=== PATIENT | male | born 1955 ===

== ENCOUNTER → 2019-05-16 | Day surgery (SDC) | payer OTHER, SELFPAY | PROVIDERS: Family Provider Internal Medicine; Visit Provider Internal Medicine | DX: R18.8 Other ascites (principal) | CPT/HCPCS: 49083; 96365; P9047 ==

== ENCOUNTER 2019-09-06 11:25 | Outpatient (RCR) | payer OTHER, SELFPAY | END 2019-09-06 23:59 | disposition home or self-care (01) | LOC: GILAB 11:25 | PROVIDERS: Family Provider Internal Medicine; Visit Provider Internal Medicine | DX: R18.8 Other ascites (principal); K74.60 Unspecified cirrhosis of liver | CPT/HCPCS: 49083; 76705 ==

== ENCOUNTER → 2019-09-20 | Day surgery (SDC) | payer SELFPAY | PROVIDERS: Family Provider Internal Medicine; Visit Provider Internal Medicine | DX: R18.8 Other ascites (principal) | CPT/HCPCS: 76705; P9047 ==

== ENCOUNTER 2019-10-03 11:56 | Observation (INO) | payer OTHER, SELFPAY ==
[2019-10-03] VITALS (9 sets, daily range): BP systolic 105–137; BP diastolic 63–95; PULSE 70–88; RESP 16–24; TEMP 36.5–37.1; O2SAT 96–99; BMI 36.0
--- NOTE | 2019-10-03 12:05 | ED_ITS ---
Entered by Gertrude Fagan, acting as scribe for HPI - Altered Mental Status General: Chief Complaint: Altered Mental Status Stated Complaint: AMS Time Seen by Provider: 10/03/19 12:05 Source: family and EMS Mode of arrival: EMS Limitations: no limitations History of Present Illness: HPI narrative: 64 yo male presents with confusion and altered mental status. per Family in room pt was at the dialysis clinic when he started acting confused and less responsive. per family pt was unable to talk or answer questions. pt has had weakness. pt unable to give a history. family denies any other symptoms at this time. MD complaint: altered mental status, confusion, weakness and other Timing confirmed by: family member and other (dialysis clinic staff) Consistency of symptoms: Constant Associated symptoms: Reports no associated symptoms Review of Systems General: Reports: ROS unobtainable due to mental status PFSH ED PFSH: Statuses (acute, chronic, etc) shown below reflect problem list status as previously entered and may not be historically accurate Medical History Adjustment disorder with anxiety (Acute) Cardiomyopathy (Acute) CHF (congestive heart failure) (Acute) Diabetes (Acute) Stable Diabetic retinopathy (Acute) Esophageal varices (Acute) ESRD (end stage renal disease) on dialysis (Acute) Receives dialysis. GERD (gastroesophageal reflux disease) (Acute) Hyperlipidemia (Acute) Hypertension (Acute) Liver failure (Acute) Stable Myocardial infarction (Acute) Normocytic anemia (Acute) Thrombocytopenia (Acute) Surgical History H/O circumcision (Acute) H/O colonoscopy (Acute) 08/2019: Follow-up colonoscopy 5 years H/O esophagogastroduodenoscopy (Acute) 2018: Gastric erosions and esophageal varices H/O eye surgery (Acute) right eye H/O hernia repair (Acute) x 4 H/O oral surgery (Acute) History of cataract surgery (Acute) bilateral History of knee replacement (Acute) right Hx of tonsillectomy (Acute) Family History Mother Cancer intestinal Denies family history of Anesthesia complication Bleeding disorder Social History (Reviewed 10/05/19 @ 11:19 by YONI Merino Smoking and tobacco status: never smoked Alcohol intake: never Household members: family Current occupational status: disabled Physical Exam Const: EXAM LIMITATIONS: altered mental status GENERAL APPEARANCE: cooperative and comfortable ORIENTATION/CONSCIOUSNESS: Yes confused; not oriented to person, not oriented to place and not oriented to time HENMT: COMMON NORMALS: normocephalic, head/scalp atraumatic, hearing grossly normal bilaterally, external ears normal, EAC's normal, TM's normal bilaterally, nasal mucous membranes and turbinates normal, moist oral mucous membranes and oropharynx normal HEAD & SCALP: normocephalic and atraumatic NOSE: nasal mucous membranes and turbinates normal EXTERNAL EAR: Yes external ears normal EXTERNAL AUDITORY CANAL: EAC's normal TYMPANIC MEMBRANE: TM's normal bilaterally Eye: COMMON NORMALS: PERRL, EOMs intact bilaterally, conjunctivae normal and no scleral icterus CONJUNCTIVA: Yes conjunctivae normal PUPIL: Yes PERRL Neck/C-Spine: COMMON NORMALS: full ROM, no lymphadenopathy, supple and no JVD Lymph: LYMPHATIC: no lymphadenopathy noted and no lymphedema noted Resp: COMMON NORMALS: normal respiratory effort, no retractions, no use of accessory muscles and clear to auscultation bilaterally AUSCULTATION: clear to auscultation bilaterally Cardio: COMMON NORMALS: no JVD, regular rate, regular rhythm and no murmurs RATE: regular rate RHYTHM: regular rhythm GI: COMMON NORMALS: non-tender PALPATION: Yes hepatomegaly Extremity: COMMON NORMALS: normal to inspection, normal capillary refill, no clubbing, cyanosis or edema, no calf tenderness and no pedal edema Neuro: SENSORIUM/ORIENTATION: No oriented to person, No oriented to place and No oriented to time Skin: COMMON NORMALS: no rashes or lesions noted GENERAL SKIN EXAM: no rashes or lesions noted Course ED course: Patient unable to give any significant history fell members at the bedside states this is been getting progressively worse generally all occurs with dialysis. Previously had seen him in his ammonia level is up he was hepato-encephalopathic we increased his lactulose and actually resolved fairly nicely. His ammonia level today is down significantly for him. Organ to go ahead and admit him ultrasound for CT does not show significant amount of ascites. Will cover with antibiotics for possible SBP. I called Dr. Arciniega for admission he will have to call back. Dr. Arciniega called back came down to the department seen the patient discussed with him he will write orders. Vital Signs: Vital signs: Vital Signs Temperature 98.3 F 10/04/19 14:47 Pulse Rate 87 10/04/19 12:00 Respiratory Rate 14 10/04/19 14:47 Blood Pressure 119/62 10/04/19 12:00 Pulse Oximetry 98 10/04/19 14:47 MDM - Altered Mental Status Lab Data: Labs: Lab Results 10/03/19 10/03/19 10/03/19 Range/Units 12:24 12:44 12:44 WBC 4.7 (4.0-10.0) 10^3/ uL RBC 2.45 L (4.1-5.3) 10^6/u L Hgb 8.0 L (11.7-16.6) g/dL Hct 25.0 L (42.0-52.0) % MCV 102.0 H (80-94) fL MCH 32.7 (28.0-34.0) pg MCHC 32.0 (30.0-36.0) g/dL RDW 15.0 (12.1-15.1) % Plt Count 102 L (130-400) 10^3/c mm MPV 9.2 (7.4-10.4) fL Neut % (Auto) 61.7 % Lymph % (Auto) 18.1 % Taliaferro % (Auto) 18.1 % Eos % (Auto) 1.7 % Baso % (Auto) 0.2 % Neut # (Auto) 2.9 (1.8-7.7) 10^3/u L Lymph # (Auto) 0.9 (0.8-4.8) 10^3/u L Tal[place]ferro # (Auto) 0.9 (0.2-0.9) 10^3/u L Eos # (Auto) 0.1 (0.0-0.8) 10^3/u L Baso # (Auto) 0.0 (0.0-0.1) 10^3/u L Nucleated RBC % (a uto) 0 % Nucleated RBCs # 0.0 /100WBC Specimen Type Arterial Sample Site Radial, right ABG pH 7.55 H (7.35-7.45) ABG pCO2 40.3 (35-45) mmHg ABG pO2 71.9 L (80.0-100.0) mmH g ABG HCO3 35.5 H (22-26) mmol/L ABG O2 Saturation 96.7 ABG Base Excess 12.1 H (-2.0-2.0) mmol/ L Edi Test N/a A-a O2 Gradient 28.0 H (5-10) mmHg Hematocrit 28.7 L (42-52) % Hgb O2 Saturation 95.0 (95-100) % Carboxyhemoglobin 1.5 (0.4-20.1) %THgb Methemoglobin 0.3 L (0.4-1.5) % Total Hemoglobin 9.3 L (14-18) g/dL Sodium 136.0 134 L (131-143) mmol/L Potassium 3.0 L 3.1 L (3.5-5.0) mmol/L Glucose 77.0 84 (70-115) mg/dL Ionized Calcium 1.1 (1.1-1.4) mmol/L FiO2 21.0 % Specimen Drawn By [employer] Project Associate ID [email or web address] Chloride 94 L (98-107) mmol/L Carbon Dioxide 32 H (22-29) mmol/L Anion Gap 11.1 (5-19) BUN 8 (8-23) mg/dL Creatinine 2.0 H (0.7-1.2) mg/dL GFR Calculation 33.9 L (90-130) mL/min Calcium 8.5 L (8.8-10.2) mg/Dl Total Bilirubin 1.5 H (0.15-1.2) mg/dL AST 47 H (0-40) U/L ALT 19 (0-41) U/L Alkaline Phosphata se 297 H (40-130) IU/L Ammonia (16-60) umol/L Total Protein 7.6 (6.6-8.7) g/dL Albumin 2.7 L (3.5-5.2) g/dL Globulin 4.9 H (1.3-4.6) g/dL TSH (0.27-4.20) uIU/ mL Urine Color (Yellow) Urine Appearance (CLEAR) Urine pH (5-7) Ur Specific Gravit y (1.005-1.030) Urine Protein (Negative) Urine Glucose (UA) (Normal) Urine Ketones (Negative) Urine Occult Blood (Negative) Urine Nitrate (Negative) Urine Bilirubin (NEGATIVE) Urine Urobilinogen (Negative) mg/dL Ur Leukocyte Ekta ase (Negative) Urine RBC (0-2) /hpf Urine WBC (0-5) /hpf Ur Squamous Epith Cells (0-5) Ur Transition Epit h Cell Ur Renal Epithelia l Cell Calcium Oxalate Cr ystal Uric Acid Crystals Triple Phos Rose ls Other Crystals Amorphous Sediment Urine Bacteria (NONE) Hyaline Casts Fine Granular Cast s Coarse Granular Ca sts RBC Casts Other Casts Urine Mucus Urine Trichomonas Urine Yeast Urine Sperm Ur Oval Fat Bodies Salicylates < 0.3 L (3-10) mg/dL Urine Opiates Scre en (Negative) ng/mL Acetaminophen < 5.0 L (10-30) ug/mL Ur Barbiturates Sc reen (Negative) ng/mL Ur Phencyclidine S crn (Negative) ng/mL Ur Amphetamines Sc reen (Negative) ng/mL U Benzodiazepines Scrn (Negative) ng/mL Urine Cocaine Scre en (Negative) ng/mL U Marijuana (THC) Screen (Negative) ng/mL Ethyl Alcohol < 10 (0-10) mg/dL 10/03/19 10/03/19 10/03/19 Range/Units 12:44 12:44 13:53 WBC (4.0-10.0) 10^3/ uL RBC (4.1-5.3) 10^6/u L Hgb (11.7-16.6) g/dL Hct (42.0-52.0) % MCV (80-94) fL MCH (28.0-34.0) pg MCHC (30.0-36.0) g/dL RDW (12.1-15.1) % Plt Count (130-400) 10^3/c mm MPV (7.4-10.4) fL Neut % (Auto) % Lymph % (Auto) % Taliaferro % (Auto) % Eos % (Auto) % Baso % (Auto) % Neut # (Auto) (1.8-7.7) 10^3/u L Lymph # (Auto) (0.8-4.8) 10^3/u L [place]ferro # (Auto) (0.2-0.9) 10^3/u L Eos # (Auto) (0.0-0.8) 10^3/u L Baso # (Auto) (0.0-0.1) 10^3/u L Nucleated RBC % (a uto) % Nucleated RBCs # /100WBC Specimen Type Sample Site ABG pH (7.35-7.45) ABG pCO2 (35-45) mmHg ABG pO2 (80.0-100.0) mmH g ABG HCO3 (22-26) mmol/L ABG O2 Saturation ABG Base Excess (-2.0-2.0) mmol/ L Edi Test A-a O2 Gradient (5-10) mmHg Hematocrit (42-52) % Hgb O2 Saturation (95-100) % Carboxyhemoglobin (0.4-20.1) %THgb Methemoglobin (0.4-1.5) % Total Hemoglobin (14-18) g/dL Sodium (131-143) mmol/L Potassium (3.5-5.0) mmol/L Glucose (70-115) mg/dL Ionized Calcium (1.1-1.4) mmol/L FiO2 % Specimen Drawn By Project Associate ID Chloride (98-107) mmol/L Carbon Dioxide (22-29) mmol/L Anion Gap (5-19) BUN (8-23) mg/dL Creatinine (0.7-1.2) mg/dL GFR Calculation (90-130) mL/min Calcium (8.8-10.2) mg/Dl Total Bilirubin (0.15-1.2) mg/dL AST (0-40) U/L ALT (0-41) U/L Alkaline Phosphata se (40-130) IU/L Ammonia 62 H (16-60) umol/L Total Protein (6.6-8.7) g/dL Albumin (3.5-5.2) g/dL Globulin (1.3-4.6) g/dL TSH 3.92 (0.27-4.20) uIU/ mL Urine Color Pi[place] (Yellow) Urine Appearance Clear (CLEAR) Urine pH 5.0 (5-7) Ur Specific Gravit y 1.020 (1.005-1.030) Urine Protein 3+ H (Negative) Urine Glucose (UA) 2+ (Normal) Urine Ketones 1+ H (Negative) Urine Occult Blood 2+ H (Negative) Urine Nitrate Negative (Negative) Urine Bilirubin 1+ H (NEGATIVE) Urine Urobilinogen 1 H (Negative) mg/dL Ur Leukocyte Ekta ase Negative (Negative) Urine RBC 0-4 H (0-2) /hpf Urine WBC None (0-5) /hpf Ur Squamous Epith Cells 5-10 H (0-5) Ur Transition Epit h Cell Cancelled Ur Renal Epithelia l Cell Cancelled Calcium Oxalate Cr ystal Cancelled Uric Acid Crystals Cancelled Triple Phos Rose ls Cancelled Other Crystals Cancelled Amorphous Sediment Not Reportable Urine Bacteria 1+ H (NONE) Hyaline Casts Cancelled Fine Granular Cast s Cancelled Coarse Granular Ca sts Cancelled RBC Casts Cancelled Other Casts Cancelled Urine Mucus Trace Urine Trichomonas Cancelled Urine Yeast Cancelled Urine Sperm Cancelled Ur Oval Fat Bodies Cancelled Salicylates (3-10) mg/dL Urine Opiates Scre en (Negative) ng/mL Acetaminophen (10-30) ug/mL Ur Barbiturates Sc reen (Negative) ng/mL Ur Phencyclidine S crn (Negative) ng/mL Ur Amphetamines Sc reen (Negative) ng/mL U Benzodiazepines Scrn (Negative) ng/mL Urine Cocaine Scre en (Negative) ng/mL U Marijuana (THC) Screen (Negative) ng/mL Ethyl Alcohol (0-10) mg/dL 10/03/19 Range/Units 13:55 WBC (4.0-10.0) 10^3/ uL RBC (4.1-5.3) 10^6/u L Hgb (11.7-16.6) g/dL Hct (42.0-52.0) % MCV (80-94) fL MCH (28.0-34.0) pg MCHC (30.0-36.0) g/dL RDW (12.1-15.1) % Plt Count (130-400) 10^3/c mm MPV (7.4-10.4) fL Neut % (Auto) % Lymph % (Auto) % Taliaferro % (Auto) % Eos % (Auto) % Baso % (Auto) % Neut # (Auto) (1.8-7.7) 10^3/u L Lymph # (Auto) (0.8-4.8) 10^3/u L [place]ferro # (Auto) (0.2-0.9) 10^3/u L Eos # (Auto) (0.0-0.8) 10^3/u L Baso # (Auto) (0.0-0.1) 10^3/u L Nucleated RBC % (a uto) % Nucleated RBCs # /100WBC Specimen Type Sample Site ABG pH (7.35-7.45) ABG pCO2 (35-45) mmHg ABG pO2 (80.0-100.0) mmH g ABG HCO3 (22-26) mmol/L ABG O2 Saturation ABG Base Excess (-2.0-2.0) mmol/ L Edi Test A-a O2 Gradient (5-10) mmHg Hematocrit (42-52) % Hgb O2 Saturation (95-100) % Carboxyhemoglobin (0.4-20.1) %THgb Methemoglobin (0.4-1.5) % Total Hemoglobin (14-18) g/dL Sodium (131-143) mmol/L Potassium (3.5-5.0) mmol/L Glucose (70-115) mg/dL Ionized Calcium (1.1-1.4) mmol/L FiO2 % Specimen Drawn By Project Associate ID [email or web address] (98-107) mmol/L Carbon Dioxide (22-29) mmol/L Anion Gap (5-19) BUN (8-23) mg/dL Creatinine (0.7-1.2) mg/dL GFR Calculation (90-130) mL/min Calcium (8.8-10.2) mg/Dl Total Bilirubin (0.15-1.2) mg/dL AST (0-40) U/L ALT (0-41) U/L Alkaline Phosphata se (40-130) IU/L Ammonia (16-60) umol/L Total Protein (6.6-8.7) g/dL Albumin (3.5-5.2) g/dL Globulin (1.3-4.6) g/dL TSH (0.27-4.20) uIU/ mL Urine Color (Yellow) Urine Appearance (CLEAR) Urine pH (5-7) Ur Specific Gravit y (1.005-1.030) Urine Protein (Negative) Urine Glucose (UA) (Normal) Urine Ketones (Negative) Urine Occult Blood (Negative) Urine Nitrate (Negative) Urine Bilirubin (NEGATIVE) Urine Urobilinogen (Negative) mg/dL Ur Leukocyte Ekta ase (Negative) Urine RBC (0-2) /hpf Urine WBC (0-5) /hpf Ur Squamous Epith Cells (0-5) Ur Transition Epit h Cell Ur Renal Epithelia l Cell Calcium Oxalate Cr ystal Uric Acid Crystals Triple Phos Rose ls Other Crystals Amorphous Sediment Urine Bacteria (NONE) Hyaline Casts Fine Granular Cast s Coarse Granular Ca sts RBC Casts Other Casts Urine Mucus Urine Trichomonas Urine Yeast Urine Sperm Ur Oval Fat Bodies Salicylates (3-10) mg/dL Urine Opiates Scre en Negative (Negative) ng/mL Acetaminophen (10-30) ug/mL Ur Barbiturates Sc reen Negative (Negative) ng/mL Ur Phencyclidine S crn Negative (Negative) ng/mL Ur Amphetamines Sc reen Negative (Negative) ng/mL U Benzodiazepines Scrn Negative (Negative) ng/mL Urine Cocaine Scre en Negative (Negative) ng/mL U Marijuana (THC) Screen Negative (Negative) ng/mL Ethyl Alcohol (0-10) mg/dL Imaging Data^: CXR: Radiologist's impression: [address] [place] [address] XRay Report Signed Patient: Triston Newton #: [id number] : 6Acct#:[id number] Age/Sex: 64 / MADM Date: 10/03/19 [facility] Attending Dr: Ordering Provider/Ordering MD: Chico Jeong DO Date of Service: 10/03/19 Procedure(s): XR chest 1V portable [id number] Accession Number(s): [id number] Report Number: [id number] WS: [id number] Portable AP upright chest, 10/03/2019 Clinical Data: AMS Comparison: AP supine chest, 09/07/2019. Findings: No nodules, masses or effusions are seen. The heart is normal. The pulmonary vascularity is not increased. No pneumonia or pneumothorax is seen. The aortic arch and descending aorta are tortuous. XR/XR chest 1V portable [id number] Impression: Atherosclerosis Dictated By:Pauline Murphy MD Signed By:Jeffrey,Pauline N MDSigned Date/Time:10/03/19 1312 DD/ 1310 CT Head: Radiologist's impression: [facility] [address] [place] [address] CT Scan Report Signed Patient: Triston Newton #: [id number] : 6Acct#:[id number] Age/Sex: 64 / MADM Date: 10/03/19 Loc: ERRoom/Bed: Attending Dr: Ordering Provider/Ordering MD: Chico Jeong DO Date of Service: 10/03/19 Procedure(s): CT head wo con* [id number] Accession Number(s): [id number] Report Number: [id number] WS: [id number] CT HEAD TECHNIQUE: Noncontrast CT of the head obtained from the skullbase to the vertex. CLINICAL INFORMATION: AMS COMPARISON: None. DLP: 493.[address] scans at [facility] use at least one of these dose optim ization techniques: automated exposure control; mA and/or kV adjustment per patient size (includes targeted exams where dose is matched to clinical indication); or iterative reconstruction. FINDINGS: No evidence of intracranial hemorrhage or mass effect. Ventricular system and basal cisterns are patent. Mild small vessel changes with mild parenchymal volume loss. No extra-axial fluid collections. No evidence of mass or mass effect. Normal valiente-white differentiation. Paranasal sinuses and mastoid air cells are well aerated. .Normal visualized soft tissues. Notified Chico Jeong DO at 10/03/2019 1:[address]/CT head wo con* [id number] IMPRESSION: 1. No evidence of intracranial hemorrhage or mass effect. 2. Mild small vessel changes with mild parenchymal volume loss. 3. No acute intracranial findings. Dictated By:Trevor May MD Signed By:Trevor May MDSigned Date/Time:10/03/195 DD/ 133 Discharge Plan Discharge Patient Disposition: Admitted As Inpatient Admit Provider: Bruno Arciniega Clinical Impression: Encephalopathy acute, ESRD (end stage renal disease) on dialysis, Liver failure Condition: Stable Discharge Orders: Discharge Order (Routine); Ordered 10/04/19 Ordered By: Bruno Arciniega Discharge Diet: Low protein Discharge Activity: Increase activity as tolerated Interventions: ED Discharge Assessment Last Done: 10/03/19 17:42 Discharge Date/Time: 10/03/19 18:15 Coding Level of Care Code ED Tan Room Supervisor for Chg Fwhazel The documentation recorded by the Rylan hayden Bridget Annette, accurately reflects the service I personally performed and the decisions made by , Chico Jeong, Oct 03, 2019 11:56
--- NOTE | 2019-10-03 12:16 | XR_ITS ---
WS: [id number] Portable AP upright chest, 10/03/2019 Clinical Data: AMS Comparison: AP supine chest, 09/07/2019. Findings: No nodules, masses or effusions are seen. The heart is normal. The pulmonary vascularity is not increased. No pneumonia or pneumothorax is seen. The aortic arch and descending aorta are tortuo us. XR/XR chest 1V portable [id number] Impression: Atherosclerosis
--- NOTE | 2019-10-03 12:16 | CT_ITS ---
WS: [id number] CT HEAD TECHNIQUE: Noncontrast CT of the head obtained from the skullbase to the vertex. CLINICAL INFORMATION: AMS COMPARISON: None. DLP: 493.[address] scans at [facility] use at least one of these dose optimization techniques: automat ed exposure control; mA and/or kV adjustment per patient size (includes targeted exams where dose is matched to clinical indication); or iterative reconstruction. FINDINGS: No evidence of intracranial hemorrhage or mass effect. Ventricular system and basal cisterns are sidhu nt. Mild small vessel changes with mild parenchymal volume loss. No extra-axial fluid collections. No evidence of mass or mass effect. Normal valiente-white differentiation. Paranasal sinuses and mastoid air cells are well aerated. .Normal visualized soft tissues. Notified Chico Jeong DO at 10/03/2019 1:[address]/CT head wo con* [id number] IMPRESSION: 1. No evidence of intracranial hemorrhage or mass effect. 2. Mild small vessel changes with mild parenchymal volume loss. 3. No acute intracranial findings.
--- NOTE | 2019-10-03 12:22 | PC.NURSE ---
While assessing patient the physician enters room. Patient responds to the physicians voice. When the physician asked patient if he was working the patient reports I can't breath.
--- NOTE | 2019-10-03 12:49 | PC.NURSE ---
Pulls away from painful stimuli and states ouch
[2019-10-03 12:51] LABS: Basophils % 0.2 %; Eosinophils # 0.1 10^3/uL (0.0-0.8); Eosinophils % 1.7 %; Lymphocytes # 0.9 10^3/uL (0.8-4.8); Lymphocytes % 18.1 %; Mean Corpuscular Hemoglobin 32.7 pg (28.0-34.0); Mean Platelet Volume 9.2 fL (7.4-10.4); Monocytes # 0.9 10^3/uL (0.2-0.9); Monocytes % 18.1 %; Neutrophils # 2.9 10^3/uL (1.8-7.7); Neutrophils % 61.7 %; Nucleated Red Blood Cells % 0 %; Platelet Count 102 10^3/cmm (130-400); Red Blood Count 2.45 10^6/uL (4.1-5.3); White Blood Count 4.7 10^3/uL (4.0-10.0)
[2019-10-03 13:05] LABS: ABG PCO2 40.3 mmHg (35-45); ABG PH Result 7.55 (7.35-7.45); Arterial Blood Gas Hematocrit 28.7 % (42-52); Base Excess ABG 12.1 mmol/L (-2.0-2.0); Blood Gas Sample Site Radial, right; Blood Gas Sample Type Arterial; Carboxyhemoglobin 1.5 %THgb (0.4-20.1); HCO3 ABG 35.5 mmol/L (22-26); Ionized Calcium Level - ABG 1.1 mmol/L (1.1-1.4); Methemoglobin 0.3 % (0.4-1.5); Oxygen Saturation ABG 96.7; PO2 ABG 71.9 mmHg (80.0-100.0); Total Hemoglobin 9.3 g/dL (14-18)
[2019-10-03 13:08] LABS: Ammonia 62 umol/L (16-60)
[2019-10-03 13:09] LABS: Alanine Aminotransferase 19 U/L (0-41); Albumin Level 2.7 g/dL (3.5-5.2); Alkaline Phosphatase 297 IU/L (40-130); Anion Gap 11.1 (5-19); Aspartate Amino Transferase 47 U/L (0-40); Blood Urea Nitrogen 8 mg/dL (8-23); Calcium 8.5 mg/Dl (8.8-10.2); Carbon Dioxide 32 mmol/L (22-29); Chloride 94 mmol/L (98-107); Globulin 4.9 g/dL (1.3-4.6); Glomerular Filtration Rate 33.9 mL/min (90-130); Glucose 84 mg/dL (74-106); Potassium 3.1 mmol/L (3.5-5.1); Sodium 134 mmol/L (136-145); Total Bilirubin 1.5 mg/dL (0.15-1.2); Total Protein 7.6 g/dL (6.6-8.7)
[2019-10-03 13:15] LABS: Acetaminophen < 5.0 ug/mL (10-30); Alcohol Level < 10 mg/dL (0-10); Salicylate < 0.3 mg/dL (3-10)
[2019-10-03] MEDS: sodium chloride 0.9% 500 ML IV ×2 (13:31→15:27)
[2019-10-03 14:12] LABS: Add Urine Microscopic? YES; Bilirubin Urine 1+ (NEGATIVE); Blood Urine 2+ (Negative); Glucose Urine UA 2+ (Normal); Ketones Urine 1+ (Negative); Leukocyte Esterase Urine Negative (Negative); Nitrate Urine Negative (Negative); Protein Urine 3+ (Negative); Urine Appearance Clear (CLEAR); Urine Color Orange (Yellow); Urobilinogen Urine 1 mg/dL (Negative)
--- NOTE | 2019-10-03 14:18 | PC.NURSE ---
Patient hygiene performed. Patient has loose stool. Contaminated bedding removed and replaced with clean material. This was performed prior to straight cath.
[2019-10-03 14:34] LABS: Amphetamines Screen Urine Negative (Negative); Barbiturates Screen Urine Negative (Negative); Benzodiazepines Screen Urine Negative (Negative); Cocaine Screen Urine Negative (Negative); Opiate Screen Urine Negative (Negative); PCP Screen Urine Negative (Negative); THC Screen Urine Negative (Negative)
[2019-10-03 14:49] LABS: Add Urine Culture? No; Bacteria Urine 1+; Mucus Urine TRACE; RBC Urine 0-4 /hpf (0-2)
--- NOTE | 2019-10-03 15:31 | PC.NURSE ---
Agree with assessment & plan of care
--- NOTE | 2019-10-03 15:36 | US_ITS ---
WS: [id number] Limited abdomen ultrasound, 10/03/2019 Clinical Data: ascites Comparison: Limited abdomen ultrasound, 09/20/2019. Findings: There is only a small amount of ascites.. US/US abdomen limited [id number] Impression: Small amount of ascites.
--- NOTE | 2019-10-03 16:49 | PM.HP ---
Providers/Chief Complaint Primary Care Provider: Jared Carter Chief Complaint: AMS History of Present Illness Triston Newton is a 64 year old male that presents to the emergency department with confusion following dialysis. Family reports this is relatively common, but not to this extent. They believe he is taking his medicines. He usually lives at home with a caregiver but they are not present. To his son's knowledge she has had no fever. He often has nausea, difficulty eating but this is not unusual. He often has a slight cough and this is not unusual as well. He has loose stool secondary to the lactulose he takes. Family believes he has been compliant with this. Patient himself denies any complaints other than chronic abdominal discomfort. Review of Systems General: Reports: 10 or more systems reviewed and unremarkable except in HPI and below Medications/Allergies Home Medications Medication Instructions Recorded Confirmed Last Taken Type Nephrocaps 1 mg PO DAILY 10/03/19 10/03/19 Unknown History hydrocodone-acetaminophen 1 tab PO Q6H PRN 10/03/19 10/03/19 Unknown History ketorolac 1 drp OPHTHALMIC (EYE) QID 10/03/19 10/03/19 Unknown History midodrine See Rx Instructions .ROUTE .COMPLEX 10/03/19 10/03/19 Unknown History pantoprazole 40 mg PO DAILY 10/03/19 10/03/19 Unknown History prednisolone acetate 1 drp OPHTHALMIC (EYE) BID 10/03/19 10/03/19 Unknown History simvastatin 20 mg PO DAILY 10/03/19 10/03/19 Unknown History terbinafine HCl 1 applic TOPICAL BID 10/03/19 10/03/19 Unknown History Allergies Allergy/AdvReac Type Severity Reaction Status Date / Time perflutren [From Definity] Allergy Unknown Unknown Verified 10/03/19 12:11 trazodone Allergy Unknown Unknown Verified 10/03/19 12:11 Gadolinium-Containing Allergy Unknown Verified 10/03/19 12:11 Contrast Medi PFSH Acute PFSH: Statuses (acute, chronic, etc) shown below reflect problem list status as previously entered and may not be historically accurate Medical History (Updated 10/03/19 @ 18:34 by Bruno Arciniega MD) Adjustment disorder with anxiety (Acute) Cardiomyopathy (Acute) CHF (congestive heart failure) (Acute) Diabetes (Acute) Diabetic retinopathy (Acute) Esophageal varices (Acute) ESRD (end stage renal disease) on dialysis (Acute) GERD (gastroesophageal reflux disease) (Acute) Hyperlipidemia (Acute) Hypertension (Acute) Liver failure (Acute) Myocardial infarction (Acute) Normocytic anemia (Acute) Thrombocytopenia (Acute) Surgical History (Updated 09/27/19 @ 15:20 by Javi Evans MD) H/O circumcision (Acute) H/O colonoscopy (Acute) 08/2019: Follow-up colonoscopy 5 years H/O esophagogastroduodenoscopy (Acute) 2018: Gastric erosions and esophageal varices H/O eye surgery (Acute) right eye H/O hernia repair (Acute) x 4 H/O oral surgery (Acute) History of cataract surgery (Acute) bilateral History of knee replacement (Acute) right Hx of tonsillectomy (Acute) Family History Mother Cancer intestinal Denies family history of Anesthesia complication Bleeding disorder Social History Smoking and tobacco status: never smoked Alcohol intake: never Household members: family Current occupational status: disabled Vitals/I&O/Wt Last Vital Signs Temp 98.7 F 10/03/19 11:58 Pulse 85 10/03/19 15:30 Resp 18 10/03/19 15:30 BP 124/71 10/03/19 15:30 Pulse Ox 97 10/03/19 15:30 Weight last 48 hrs Weight 104.326 kg Physical Exam Narrative: EXAM NARRATIVE: General exam is a sleepy white male, who can moderate few responses but is confused. HEENT: Pupils equally round. Oropharynx clear. Neck is supple obese no lymphadenopathy or thyromegaly. His cardiovascular regular rate and rhythm without murmur, no S3 or S4 Lungs clear no wheezing or crackles Abdomen is soft with positive bowel sounds. Some subjective tenderness epigastric area Extremities no cyanosis clubbing. 1+ edema is present. Left upper extremity with thrill and bruit Skin without rash. Neuro no focal deficits, but confusion is evident Data : 10/03/19 12:44 10/03/19 12:44 Other data: Abdominal ultrasound with scant amount of ascitic fluid. CT head nothing acute. Chest x-ray no infiltrate. A&P Assessment and plan (1) Encephalopathy: Etiology unclear. This could be a medication effect. He has taken narcotics occasionally at home. This could be hepatic encephalopathy. His level of ammonia is slightly high. This could be related to dialysis. Family relates that this seems to worsen following a treatment which happened today. Status: Acute Code(s): G93.40 - Encephalopathy, unspecified (2) Liver failure: Associated with thrombocytopenia, anemia. Also has history of esophageal varices Status: Acute Code(s): K72.90 - Hepatic failure, unspecified without coma (3) ESRD (end stage renal disease) on dialysis: On dialysis Thursday. Will need nephrology consult tomorrow if not discharged. No need for dialysis today. Status: Acute Code(s): N18.6 - End stage renal disease; Z99.2 - Dependence on renal dialysis (4) Diabetes: Sliding scale insulin will be given Status: Acute Code(s): E11.9 - Type 2 diabetes mellitus without complications Additional A&P Information No definitive evidence of infection on laboratory or exam. Will initiate his home medication of lactulose, hold any narcotic medicine and observe closely. If he gets to baseline status fairly soon he could possibly be discharged tomorrow. Attestations Medical Necessity Statement*: Will need less than 2 midnight stay for evaluation of encephalopathy, likely hepatic encephalopathy. 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
--- NOTE | 2019-10-03 17:51 | PC.NURSE ---
Patient placed in gown prior to departing the ED. Posterior skin clean at this time.
[2019-10-03] MEDS: allopurinol 100 mg Tablet PO (19:45)
[2019-10-03] MEDS: gabapentin 100 mg Capsule PO (19:46)
[2019-10-03] MEDS: lactulose oral liq 20 gm/30 mL UDC 40 GM PO (19:46)
[2019-10-03] MEDS: ketorolac 0.5% Op 5 mL Btl 1 DROP EYE-BOTH (19:47)
[2019-10-03] MEDS: fluticasone nasal spray 16gm Btl 1 SPRAY INTRANASAL (19:48)
[2019-10-03 21:26] LABS: Glucose Point of Care 141 mg/dL (70-110)
[2019-10-03 22:32] LABS: Influenza A by IFA Negative (Negative); Influenza B by IFA Negative (Negative)
[2019-10-04] VITALS (8 sets, daily range): BP systolic 112–120; BP diastolic 62–70; PULSE 51–89; RESP 14–20; TEMP 36.7–36.9; O2SAT 93–98
[2019-10-04] MEDS: lidocaine 5% Patch 1 PATCH TOPICAL ×2 (01:56→08:16)
[2019-10-04 04:10] LABS: Basophils % 0.5 %; Eosinophils # 0.1 10^3/uL (0.0-0.8); Eosinophils % 1.9 %; Hematocrit 24.3 % (42.0-52.0); Hemoglobin 7.9 g/dL (11.7-16.6); Lymphocytes # 0.8 10^3/uL (0.8-4.8); Lymphocytes % 20.5 %; Mean Corpuscular HGB Conc 32.5 g/dL (30.0-36.0); Mean Corpuscular Hemoglobin 34.3 pg (28.0-34.0); Mean Corpuscular Volume 105.7 fL (80-94); Mean Platelet Volume 9.4 fL (7.4-10.4); Monocytes # 0.6 10^3/uL (0.2-0.9); Monocytes % 15.6 %; Neutrophils # 2.2 10^3/uL (1.8-7.7); Neutrophils % 61.2 %; Nucleated Red Blood Cells % 0 %; Platelet Count 97 10^3/cmm (130-400); Red Cell Distribution Width 14.7 % (12.1-15.1); White Blood Count 3.7 10^3/uL (4.0-10.0)
[2019-10-04 04:15] LABS: Alanine Aminotransferase 18 U/L (0-41); Albumin Level 2.8 g/dL (3.5-5.2); Alkaline Phosphatase 242 IU/L (40-130); Anion Gap 14.6 (5-19); Aspartate Amino Transferase 43 U/L (0-40); Blood Urea Nitrogen 13 mg/dL (8-23); Calcium 8.2 mg/Dl (8.8-10.2); Carbon Dioxide 29 mmol/L (22-29); Chloride 96 mmol/L (98-107); Globulin 4.1 g/dL (1.3-4.6); Glucose 148 mg/dL (74-106); Potassium 3.6 mmol/L (3.5-5.1); Sodium 136 mmol/L (136-145); Total Bilirubin 1.4 mg/dL (0.15-1.2); Total Protein 6.9 g/dL (6.6-8.7)
[2019-10-04 05:26] LABS: Thyroid Stimulating Hormone 3.92 uIU/mL (0.27-4.20)
[2019-10-04 05:48] LABS: Add On to Lab Order(s) Added
[2019-10-04 06:28] LABS: Glucose Point of Care 141 mg/dL (70-110)
[2019-10-04] MEDS: cetirizine 10 mg Tablet PO (08:14)
[2019-10-04] MEDS: pantoprazole DR 40 mg Tablet PO (08:15)
[2019-10-04] MEDS: clopidogrel 75 mg Tablet PO (08:15)
[2019-10-04] MEDS: atorvastatin 40 mg Tablet 20 MG PO (08:15)
[2019-10-04] MEDS: allopurinol 100 mg Tablet PO (08:16)
[2019-10-04] MEDS: fluticasone nasal spray 16gm Btl 1 SPRAY INTRANASAL (08:16)
[2019-10-04] MEDS: ketorolac 0.5% Op 5 mL Btl 1 DROP EYE-BOTH ×2 (08:16→13:10)
[2019-10-04] MEDS: prednisoLONE 1% Op Susp 5 mL Btl 1 DROP EYE-BOTH (08:17)
[2019-10-04] MEDS: terbinafine 1% Cream 15 gm 1 APPLIC TOPICAL (08:17)
[2019-10-04] MEDS: lactulose oral liq 20 gm/30 mL UDC 40 GM PO (08:18)
--- NOTE | 2019-10-04 12:46 | P.DS_ITS ---
Discharge Providers Date of Admission: 10/03/19 16:46 Date of Discharge: 10/04/19 Attending Provider at Admission: Bruno Arciniega MD Attending Provider at Discharge: Bruno Arciniega MD Primary Care Provider: Jared Carter Diagnoses at Discharge Discharge Diagnosis (1) Encephalopathy: Status: Acute Problem details: Markedly improved. Was given lactulose, which he is instructed to take 3 times daily at home. He believes he takes this perhaps twice a day. Rifaximin initiated as well. (2) Liver failure: Status: Acute Problem details: Stable (3) ESRD (end stage renal disease) on dialysis: Status: Acute Problem details: Receives dialysis. (4) Diabetes: Status: Acute Problem details: Stable Reason for Visit Reason for Visit: Reason For Visit: [facility] Hospital Course Hospital Course: Triston presented to the hospital somewhat lethargic. Son reported he was slightly this way prior to going to dialysis but was certainly worse afterwards. He was evaluated in the emergency department with laboratory, CT scan, abdominal ultrasound, chest x-ray no evidence of infection was noted. This was thought to be secondary to his hepatic encephalopathy. Ammonia level was slightly elevated. He was observed overnight, given lactulose, and followed closely. By the morning, he was much more alert and back to baseline. Rifaximin was added to his regimen to try to prevent recurrent hospitalizations for hepatic encephalopathy. Physical Exam Narrative: EXAM NARRATIVE: General exam is alert, oriented male in no apparent distress Cardiovascular regular rate and rhythm without murmur Lungs clear Abdomen is soft, slightly protuberant, positive bowel sounds and no tenderness. Extremities no cyanosis clubbing. 1+ edema was noted bilaterally. Discharge Data Data Completed and Pending: Completed Studies During Hospitalization Category Date Time Status CT head wo con* 7 [id number] Stat Cat Scan 10/03/19 12:16 Completed XR chest 1V ender ble [id number] Stat Exams 10/03/19 12:16 [place] [id number] Urgent Ultrasound 10/03/19 15:36 Completed Labs from last 24 hours 10/04/19 10/04/19 10/04/19 06:12 03:20 03:20 WBC 3.7 L RBC 2.30 L Hgb 7.9 L Hct 24.3 L MCV 105.7 H MCH 34.3 H MCHC 32.5 RDW 14.7 Plt Count 97 L MPV 9.4 Neut % (Auto) 61.2 Lymph % (Auto) 20.5 Davie % (Auto) 15.6 Eos % (Auto) 1.9 Baso % (Auto) 0.5 Neut # (Auto) 2.2 Lymph # (Auto) 0.8 Davie # (Auto) 0.6 Eos # (Auto) 0.1 Baso # (Auto) 0.0 Nucleated RBC % (a uto) 0 Nucleated RBCs # 0.0 Specimen Type Sample Site ABG pH ABG pCO2 ABG pO2 ABG HCO3 ABG O2 Saturation ABG Base Excess Edi Test A-a O2 Gradient Hematocrit Hgb O2 Saturation Carboxyhemoglobin Methemoglobin Total Hemoglobin Sodium 136 Potassium 3.6 Glucose 148 H Ionized Calcium FiO2 Specimen Drawn By Insurance Adjustor ID Chloride 96 L Carbon Dioxide 29 Anion Gap 14.6 BUN 13 Creatinine 2.8 H GFR Calculation 23.0 L POC Glucose 141 Calcium 8.2 L Total Bilirubin 1.4 H AST 43 H ALT 18 Alkaline Phosphata se 242 H Ammonia Total Protein 6.9 Albumin 2.8 L Globulin 4.1 TSH Urine Color Urine Appearance Urine pH Ur Specific Gravit y Urine Protein Urine Glucose (UA) Urine Ketones Urine Occult Blood Urine Nitrate Urine Bilirubin Urine Urobilinogen Ur Leukocyte Ekta ase Urine RBC Urine WBC Ur Squamous Epith Cells Ur Transition Epit h Cell Ur Renal Epithelia l Cell Calcium Oxalate Cr ystal Uric Acid Crystals Triple Phos Rose ls Other Crystals Amorphous Sediment Urine Bacteria Hyaline Casts Fine Granular Cast s Coarse Granular Ca sts RBC Casts Other Casts Urine Mucus Urine Trichomonas Urine Yeast Urine Sperm Ur Oval Fat Bodies Salicylates Urine Opiates Scre en Acetaminophen Ur Barbiturates Sc reen Ur Phencyclidine S crn Ur Amphetamines Sc reen U Benzodiazepines Scrn Urine Cocaine Scre en U Marijuana (THC) Screen Ethyl Alcohol Influenza Type A A g POC Influenza B Ag 10/03/19 10/03/19 10/03/19 21:19 20:00 13:55 WBC RBC Hgb Hct MCV MCH MCHC RDW Plt Count MPV Neut % (Auto) Lymph % (Auto) Davie % (Auto) Eos % (Auto) Baso % (Auto) Neut # (Auto) Lymph # (Auto) Davie # (Auto) Eos # (Auto) Baso # (Auto) Nucleated RBC % (a uto) Nucleated RBCs # Specimen Type Sample Site ABG pH ABG pCO2 ABG pO2 ABG HCO3 ABG O2 Saturation ABG Base Excess Edi Test A-a O2 Gradient Hematocrit Hgb O2 Saturation Carboxyhemoglobin Methemoglobin Total Hemoglobin Sodium Potassium Glucose Ionized Calcium FiO2 Specimen Drawn By Insurance Adjustor ID Chloride Carbon Dioxide Anion Gap BUN Creatinine GFR Calculation POC Glucose 141 Calcium Total Bilirubin AST ALT Alkaline Phosphata se Ammonia Total Protein Albumin Globulin TSH Urine Color Urine Appearance Urine pH Ur Specific Gravit y Urine Protein Urine Glucose (UA) Urine Ketones Urine Occult Blood Urine Nitrate Urine Bilirubin Urine Urobilinogen Ur Leukocyte Ekta ase Urine RBC Urine WBC Ur Squamous Epith Cells Ur Transition Epit h Cell Ur Renal Epithelia l Cell Calcium Oxalate Cr ystal Uric Acid Crystals Triple Phos Rose ls Other Crystals Amorphous Sediment Urine Bacteria Hyaline Casts Fine Granular Cast s Coarse Granular Ca sts RBC Casts Other Casts Urine Mucus Urine Trichomonas Urine Yeast Urine Sperm Ur Oval Fat Bodies Salicylates Urine Opiates Scre en Negative Acetaminophen Ur Barbiturates Sc reen Negative Ur Phencyclidine S crn Negative Ur Amphetamines Sc reen Negative U Benzodiazepines Scrn Negative Urine Cocaine Scre en Negative U Marijuana (THC) Screen Negative Ethyl Alcohol Influenza Type A A g Negative POC Influenza B Ag Negative 10/03/19 10/03/19 10/03/19 13:53 12:44 12:44 WBC RBC Hgb Hct MCV MCH MCHC RDW Plt Count MPV Neut % (Auto) Lymph % (Auto) Davie % (Auto) Eos % (Auto) Baso % (Auto) Neut # (Auto) Lymph # (Auto) Davie # (Auto) Eos # (Auto) Baso # (Auto) Nucleated RBC % (a uto) Nucleated RBCs # Specimen Type Sample Site ABG pH ABG pCO2 ABG pO2 ABG HCO3 ABG O2 Saturation ABG Base Excess Edi Test A-a O2 Gradient Hematocrit Hgb O2 Saturation Carboxyhemoglobin Methemoglobin Total Hemoglobin Sodium Potassium Glucose Ionized Calcium FiO2 Specimen Drawn By Insurance Adjustor ID Chloride Carbon Dioxide Anion Gap BUN Creatinine GFR Calculation POC Glucose Calcium Total Bilirubin AST ALT Alkaline Phosphata se Ammonia 62 H Total Protein Albumin Globulin TSH 3.92 Urine Color [place] Urine Appearance Clear Urine pH 5.0 Ur Specific Gravit y 1.020 Urine Protein 3+ H Urine Glucose (UA) 2+ Urine Ketones 1+ H Urine Occult Blood 2+ H Urine Nitrate Negative Urine Bilirubin 1+ H Urine Urobilinogen 1 H Ur Leukocyte Ekta ase Negative Urine RBC 0-4 H Urine WBC None Ur Squamous Epith Cells 5-10 H Ur Transition Epit h Cell Cancelled Ur Renal Epithelia l Cell Cancelled Calcium Oxalate Cr ystal Cancelled Uric Acid Crystals Cancelled Triple Phos Rose ls Cancelled Other Crystals Cancelled Amorphous Sediment Not Reportable Urine Bacteria 1+ H Hyaline Casts Cancelled Fine Granular Cast s Cancelled Coarse Granular Ca sts Cancelled RBC Casts Cancelled Other Casts Cancelled Urine Mucus Trace Urine Trichomonas Cancelled Urine Yeast Cancelled Urine Sperm Cancelled Ur Oval Fat Bodies Cancelled Salicylates Urine Opiates Scre en Acetaminophen Ur Barbiturates Sc reen Ur Phencyclidine S crn Ur Amphetamines Sc reen U Benzodiazepines Scrn Urine Cocaine Scre en U Marijuana (THC) Screen Ethyl Alcohol Influenza Type A A g POC Influenza B Ag 10/03/19 10/03/19 10/03/19 12:44 12:44 12:24 WBC 4.7 RBC 2.45 L Hgb 8.0 L Hct 25.0 L MCV 102.0 H MCH 32.7 MCHC 32.0 RDW 15.0 Plt Count 102 L MPV 9.2 Neut % (Auto) 61.7 Lymph % (Auto) 18.1 Davie % (Auto) 18.1 Eos % (Auto) 1.7 Baso % (Auto) 0.2 Neut # (Auto) 2.9 Lymph # (Auto) 0.9 Davie # (Auto) 0.9 Eos # (Auto) 0.1 Baso # (Auto) 0.0 Nucleated RBC % (a uto) 0 Nucleated RBCs # 0.0 Specimen Type Arterial Sample Site Radial, right ABG pH 7.55 H ABG pCO2 40.3 ABG pO2 71.9 L ABG HCO3 35.5 H ABG O2 Saturation 96.7 ABG Base Excess 12.1 H Edi Test N/a A-a O2 Gradient 28.0 H Hematocrit 28.7 L Hgb O2 Saturation 95.0 Carboxyhemoglobin 1.5 Methemoglobin 0.3 L Total Hemoglobin 9.3 L Sodium 134 L 136.0 Potassium 3.1 L 3.0 L Glucose 84 77.0 Ionized Calcium 1.1 FiO2 21.0 Specimen Drawn By Yaniraja Insurance Adjustor ID [id number] Chloride 94 L Carbon Dioxide 32 H Anion Gap 11.1 BUN 8 Creatinine 2.0 H GFR Calculation 33.9 L POC Glucose Calcium 8.5 L Total Bilirubin 1.5 H AST 47 H ALT 19 Alkaline Phosphata se 297 H Ammonia Total Protein 7.6 Albumin 2.7 L Globulin 4.9 H TSH Urine Color Urine Appearance Urine pH Ur Specific Gravit y Urine Protein Urine Glucose (UA) Urine Ketones Urine Occult Blood Urine Nitrate Urine Bilirubin Urine Urobilinogen Ur Leukocyte Ekta ase Urine RBC Urine WBC Ur Squamous Epith Cells Ur Transition Epit h Cell Ur Renal Epithelia l Cell Calcium Oxalate Cr ystal Uric Acid Crystals Triple Phos Rose ls Other Crystals Amorphous Sediment Urine Bacteria Hyaline Casts Fine Granular Cast s Coarse Granular Ca sts RBC Casts Other Casts Urine Mucus Urine Trichomonas Urine Yeast Urine Sperm Ur Oval Fat Bodies Salicylates < 0.3 L Urine Opiates Scre en Acetaminophen < 5.0 L Ur Barbiturates Sc reen Ur Phencyclidine S crn Ur Amphetamines Sc reen U Benzodiazepines Scrn Urine Cocaine Scre en U Marijuana (THC) Screen Ethyl Alcohol < 10 Influenza Type A A g POC Influenza B Ag Vitals: Last Vital Signs Temp 98.3 F 10/04/19 12:00 Pulse 87 10/04/19 12:00 Resp 14 10/04/19 12:00 BP 119/62 10/04/19 12:00 Pulse Ox 98 10/04/19 12:00 Discharge Plan Discharge Patient Disposition: Home, Self-Care Condition: Stable Prescriptions: New Xifaxan 550 mg Tablet 550 mg PO BID Qty: 60 RF: 3 Continued fluticasone propionate 50 mcg/actuation spray,suspension 1 spray INTRANASAL BID RF: 0 cetirizine [Allergy Relief (cetirizine)] 10 mg tablet 10 mg PO DAILY RF: 0 lidocaine-prilocaine 2.5-2.5 % cream 1 applic TOPICAL ONCE RF: 0 clopidogrel [Plavix] 75 mg tablet 75 mg PO DAILY RF: 0 calcium acetate 667 mg capsule 1,334 mg PO TID RF: 0 allopurinol 100 mg tablet 100 mg PO ONCE RF: 0 gabapentin 100 mg capsule 100 mg PO BID RF: 0 Novolog Mix 70-30 U-100 Insuln 100 unit/mL (70-30) solution See Rx Instructions SUBCUT .COMPLEX RF: 0 lactulose 10 gram/15 mL solution 60 ml PO TID RF: 0 midodrine 10 mg Tablet See Rx Instructions .ROUTE .COMPLEX RF: 0 Nephrocaps 1 mg PO DAILY RF: 0 terbinafine HCl 1 % Cream 1 applic TOPICAL BID RF: 0 simvastatin 40 mg Tablet 20 mg PO DAILY RF: 0 ketorolac 0.5 % Drops 1 drp OPHTHALMIC (EYE) QID RF: 0 prednisolone acetate 1 % Drops,Suspension 1 drp OPHTHALMIC (EYE) BID RF: 0 pantoprazole 40 mg Tablet,Delayed Release (Dr/Ec) 40 mg PO DAILY RF: 0 Discontinued hydrocodone-acetaminophen 10-325 mg Tablet 1 tab PO Q6H PRN (Reason: Pain) RF: 0 Discharge Orders: Discharge Order (Routine); Ordered 10/04/19 Ordered By: Bruno Arciniega Referrals: Jared Carter [Primary Care Provider] - MARCELLUS [Referring] - 4-7 days Discharge Diet: Low protein Discharge Activity: Increase activity as tolerated Activity Restrictions/Additional Instructions: Take all medicine as prescribed. Keep dialysis appointments Thursday. Initiate rifaximin as ordered. Continue lactulose at this time. Discharge Attestations Time Spent in Discharge Care*: greater than 30 min Quality Metrics Clinical Quality Measures During this hospital stay, did patient experience: None Coding Level of Care Code Acute Education Program Associate for Karen Fwd Diagnoses Encephalopathy G93.40 Liver failure K72.90 ESRD (end stage renal disease) on dialysis N18.6; Z99.2 Diabetes E11.9
[2019-10-04 13:31] LABS: Glucose Point of Care 217 mg/dL (70-110)
== END 2019-10-04 14:48 | disposition home or self-care (01) ==
LOC: ER 17:44 → MEDSURG 17:57
PROVIDERS: Admitting Provider Internal Medicine; Emergency Provider Family Medicine; Family Provider Internal Medicine; PCP Internal Medicine; Visit Provider Internal Medicine
DX: G93.40 Encephalopathy, unspecified (principal); K72.90 Hepatic failure, unspecified without coma; Z99.2 Dependence on renal dialysis; I25.10 Atherosclerotic heart disease of native coronary artery without angina pectoris; Z95.5 Presence of coronary angioplasty implant and graft; E11.22 Type 2 diabetes mellitus with diabetic chronic kidney disease; I13.2 Hypertensive heart and chronic kidney disease with heart failure and with stage 5 chronic kidney disease, or end stage renal disease; I50.9 Heart failure, unspecified; N18.6 End stage renal disease; K21.9 Gastro-esophageal reflux disease without esophagitis; I25.2 Old myocardial infarction
CPT/HCPCS: 12345; 36415; 36416; 36600; 51701; 51702; 70450; 71045; 76705; 80051; 80053; 80307; 81003; 82140; 82810; 82962; 83986; 84443; 85025; 87804; 96360; 96361; 96372; 99282; 99285; G0378; J1815; J7040

== ENCOUNTER 2019-10-05 12:31 | Inpatient (IN) | payer OTHER, SELFPAY ==
[2019-10-05] VITALS (11 sets, daily range): BP systolic 111–128; BP diastolic 55–75; PULSE 78–93; RESP 16–20; TEMP 36.6–37; O2SAT 93–98
--- NOTE | 2019-10-05 12:34 | W.ED.AMS ---
Documented by User: LEIGH Miller 10/06/19 06:59 HPI - Altered Mental Status General: Chief Complaint: Altered Mental Status Stated Complaint: AMS Time Seen by Provider: 10/05/19 12:34 Source: family Mode of arrival: EMS Limitations: altered mental status History of Present Illness: HPI narrative: Patient is a 64-year-old male here with his son for complaints of altered mental status; patient has a history of hepatic encephalopathy and was recently hospitalized because of this; patient was discharged yesterday; son states even after discharge patient was not back to his baseline; he went to dialysis this morning and states fell asleep during dialysis and when he awoke was very altered; upon arrival patient does not answer questions he simply responds yes to anything I asked him; he is not able to follow commands; son tells me he is concerned about patient's enlarging abdomen (he had ultrasound abdomen performed 2 days ago which showed small amount of ascites) and the fact he has been having black stools MD complaint: altered mental status, confusion and decreased responsiveness Onset (ago): hour(s) Time: 08:45 Timing confirmed by: family member Associated symptoms: Reports no associated symptoms Review of Systems General: Reports: ROS unobtainable due to mental status PFSH ED PFSH: Statuses (acute, chronic, etc) shown below reflect problem list status as previously entered and may not be historically accurate Medical History (Updated 10/05/19 @ 19:21 by Dago Wang MD) Adjustment disorder with anxiety (Acute) Cardiomyopathy (Acute) CHF (congestive heart failure) (Acute) Diabetes (Acute) Diabetic retinopathy (Acute) Esophageal varices (Acute) ESRD (end stage renal disease) on dialysis (Acute) GERD (gastroesophageal reflux disease) (Acute) Hyperlipidemia (Acute) Hypertension (Acute) Liver cirrhosis (Acute) Liver failure (Acute) Stable Myocardial infarction (Acute) Normocytic anemia (Acute) Thrombocytopenia (Acute) Surgical History H/O circumcision (Acute) H/O colonoscopy (Acute) 08/2019: Follow-up colonoscopy 5 years H/O esophagogastroduodenoscopy (Acute) 2018: Gastric erosions and esophageal varices H/O eye surgery (Acute) right eye H/O hernia repair (Acute) x 4 H/O oral surgery (Acute) History of cataract surgery (Acute) bilateral History of knee replacement (Acute) right Hx of tonsillectomy (Acute) Family History Mother Cancer intestinal Denies family history of Anesthesia complication Bleeding disorder Social History Smoking and tobacco status: unknown if ever smoked Alcohol intake: never Household members: family Current occupational status: disabled Physical Exam Const: EXAM LIMITATIONS: altered mental status NUTRITIONAL APPEARANCE: obese HENMT: COMMON NORMALS: normocephalic and head/scalp atraumatic HEAD & SCALP: normocephalic and atraumatic Resp: COMMON NORMALS: normal respiratory effort and clear to auscultation bilaterally AUSCULTATION: clear to auscultation bilaterally Cardio: COMMON NORMALS: regular rate and regular rhythm RATE: regular rate RHYTHM: regular rhythm GI: INSPECTION: Yes abdominal distension, Yes central obesity and No fluid wave present AUSCULTATION: Yes normoactive bowel sounds PERCUSSION: no fluid wave RECTAL EXAM: Yes other (pt had episode of fecal incontinence; stool was tested and hemoccult +) Extremity: COMMON NORMALS: normal to inspection Neuro: OTHER: pt does not follow any commands; he simply responds yes to anything I ask Course Vital Signs: Vital signs: Vital Signs Temperature 98.4 F 10/05/19 20:20 Pulse Rate 82 10/05/19 20:42 Respiratory Rate 18 10/06/19 01:34 Blood Pressure 116/70 10/05/19 20:42 Pulse Oximetry 95 10/06/19 04:04 MDM - Altered Mental Status MDM Narrative: Medical decision making narrative: Dr. Tucker spoke to Dr. Arciniega for admission and based on positive hemoccult and hx of esophageal varices he feels pt needs transferred for possible banding; pt has been to [facility] previously and son states he would like him to go back there; Dr. Tucker will work on transfer. Lab Data: Labs: Lab Results 10/05/19 10/05/19 10/05/19 Range/Units 13:20 13:33 13:33 WBC 4.2 (4.0-10.0) 10^3/ uL RBC 2.18 L (4.1-5.3) 10^6/u L Hgb 7.2 L (11.7-16.6) g/dL Hct 22.2 L (42.0-52.0) % MCV 101.8 H (80-94) fL MCH 33.0 (28.0-34.0) pg MCHC 32.4 (30.0-36.0) g/dL RDW 14.7 (12.1-15.1) % Plt Count 109 L (130-400) 10^3/c mm MPV 9.3 (7.4-10.4) fL Neut % (Auto) 65.1 % Lymph % (Auto) 16.3 % Walton % (Auto) 16.5 % Eos % (Auto) 1.2 % Baso % (Auto) 0.7 % Neut # (Auto) 2.8 (1.8-7.7) 10^3/u L Lymph # (Auto) 0.7 L (0.8-4.8) 10^3/u L Walton # (Auto) 0.7 (0.2-0.9) 10^3/u L Eos # (Auto) 0.1 (0.0-0.8) 10^3/u L Baso # (Auto) 0.0 (0.0-0.1) 10^3/u L Nucleated RBC % (a uto) 0 % Nucleated RBCs # 0.0 /100WBC PT (10.5-13.3) SECO NDS INR (0.8-1.2) Specimen Type Arterial Sample Site Radial, right ABG pH 7.56 H (7.35-7.45) ABG pCO2 41.8 (35-45) mmHg ABG pO2 75.4 L (80.0-100.0) mmH g ABG HCO3 37.1 H (22-26) mmol/L ABG O2 Saturation 96.7 ABG Base Excess 13.5 H (-2.0-2.0) mmol/ L Edi Test N/a A-a O2 Gradient 22.1 H (5-10) mmHg Hematocrit 30.7 L (42-52) % Hgb O2 Saturation 94.2 L (95-100) % Carboxyhemoglobin 1.8 (0.4-20.1) %THgb Methemoglobin 0.7 (0.4-1.5) % Total Hemoglobin 10.0 L (14-18) g/dL Sodium 136.0 132 L (131-143) mmol/L Potassium 3.4 L 3.3 L (3.5-5.0) mmol/L Glucose 104.0 113 H (70-115) mg/dL Ionized Calcium 1.1 (1.1-1.4) mmol/L O2 Delivery Device R/a FiO2 21.0 % Mode BiPAP Not Reportable Specimen Drawn By Not Reportable Receiving Worker ID [email or web address] Chloride 92 L (98-107) mmol/L Carbon Dioxide 31 H (22-29) mmol/L Anion Gap 12.3 (5-19) BUN 10 (8-23) mg/dL Creatinine 1.8 H (0.7-1.2) mg/dL GFR Calculation 38.3 L (90-130) mL/min Lactate (0.5-2.2) mmol/L Calcium 8.3 L (8.8-10.2) mg/Dl Magnesium (1.7-2.3) mg/dL Total Bilirubin 1.1 (0.15-1.2) mg/dL AST 42 H (0-40) U/L ALT 20 (0-41) U/L Alkaline Phosphata se 297 H (40-130) IU/L Ammonia (16-60) umol/L Troponin T Baselin e (0-15) ng/mL Troponin T 120 Min [place] (0-15) ng/mL Delta Troponin T (0-10) ABS# NT-Pro-B Natriuret Pep 5850 H (0-125) pg/mL Total Protein 7.6 (6.6-8.7) g/dL Albumin 2.5 L (3.5-5.2) g/dL Globulin 5.1 H (1.3-4.6) g/dL Salicylates < 0.3 L (3-10) mg/dL Acetaminophen < 5.0 L (10-30) ug/mL Blood Type Antibody Screen Crossmatch 10/05/19 10/05/19 10/05/19 Range/Units 13:33 13:33 13:33 WBC (4.0-10.0) 10^3/ uL RBC (4.1-5.3) 10^6/u L Hgb (11.7-16.6) g/dL Hct (42.0-52.0) % MCV (80-94) fL MCH (28.0-34.0) pg MCHC (30.0-36.0) g/dL RDW (12.1-15.1) % Plt Count (130-400) 10^3/c mm MPV (7.4-10.4) fL Neut % (Auto) % Lymph % (Auto) % Walton % (Auto) % Eos % (Auto) % Baso % (Auto) % Neut # (Auto) (1.8-7.7) 10^3/u L Lymph # (Auto) (0.8-4.8) 10^3/u L Walton # (Auto) (0.2-0.9) 10^3/u L Eos # (Auto) (0.0-0.8) 10^3/u L Baso # (Auto) (0.0-0.1) 10^3/u L Nucleated RBC % (a uto) % Nucleated RBCs # /100WBC PT 16.30 H (10.5-13.3) SECO NDS INR 1.27 H (0.8-1.2) Specimen Type Sample Site ABG pH (7.35-7.45) ABG pCO2 (35-45) mmHg ABG pO2 (80.0-100.0) mmH g ABG HCO3 (22-26) mmol/L ABG O2 Saturation ABG Base Excess (-2.0-2.0) mmol/ L Edi Test A-a O2 Gradient (5-10) mmHg Hematocrit (42-52) % Hgb O2 Saturation (95-100) % Carboxyhemoglobin (0.4-20.1) %THgb Methemoglobin (0.4-1.5) % Total Hemoglobin (14-18) g/dL Sodium (131-143) mmol/L Potassium (3.5-5.0) mmol/L Glucose (70-115) mg/dL Ionized Calcium (1.1-1.4) mmol/L O2 Delivery Device FiO2 % Mode BiPAP Specimen Drawn By Receiving Worker ID Chloride (98-107) mmol/L Carbon Dioxide (22-29) mmol/L Anion Gap (5-19) BUN (8-23) mg/dL Creatinine (0.7-1.2) mg/dL GFR Calculation (90-130) mL/min Lactate 2.3 H (0.5-2.2) mmol/L Calcium (8.8-10.2) mg/Dl Magnesium (1.7-2.3) mg/dL Total Bilirubin (0.15-1.2) mg/dL AST (0-40) U/L ALT (0-41) U/L Alkaline Phosphata se (40-130) IU/L Ammonia 101 H (16-60) umol/L Troponin T Baselin e (0-15) ng/mL Troponin T 120 Min [place] (0-15) ng/mL Delta Troponin T (0-10) ABS# NT-Pro-B Natriuret Pep (0-125) pg/mL Total Protein (6.6-8.7) g/dL Albumin (3.5-5.2) g/dL Globulin (1.3-4.6) g/dL Salicylates (3-10) mg/dL Acetaminophen (10-30) ug/mL Blood Type Antibody Screen Crossmatch 10/05/19 10/05/19 10/05/19 Range/Units 13:33 13:33 14:19 WBC (4.0-10.0) 10^3/ uL RBC (4.1-5.3) 10^6/u L Hgb (11.7-16.6) g/dL Hct (42.0-52.0) % MCV (80-94) fL MCH (28.0-34.0) pg MCHC (30.0-36.0) g/dL RDW (12.1-15.1) % Plt Count (130-400) 10^3/c mm MPV (7.4-10.4) fL Neut % (Auto) % Lymph % (Auto) % Walton % (Auto) % Eos % (Auto) % Baso % (Auto) % Neut # (Auto) (1.8-7.7) 10^3/u L Lymph # (Auto) (0.8-4.8) 10^3/u L Walton # (Auto) (0.2-0.9) 10^3/u L Eos # (Auto) (0.0-0.8) 10^3/u L Baso # (Auto) (0.0-0.1) 10^3/u L Nucleated RBC % (a uto) % Nucleated RBCs # /100WBC PT (10.5-13.3) SECO NDS INR (0.8-1.2) Specimen Type Sample Site ABG pH (7.35-7.45) ABG pCO2 (35-45) mmHg ABG pO2 (80.0-100.0) mmH g ABG HCO3 (22-26) mmol/L ABG O2 Saturation ABG Base Excess (-2.0-2.0) mmol/ L Edi Test A-a O2 Gradient (5-10) mmHg Hematocrit (42-52) % Hgb O2 Saturation (95-100) % Carboxyhemoglobin (0.4-20.1) %THgb Methemoglobin (0.4-1.5) % Total Hemoglobin (14-18) g/dL Sodium (131-143) mmol/L Potassium (3.5-5.0) mmol/L Glucose (70-115) mg/dL Ionized Calcium (1.1-1.4) mmol/L O2 Delivery Device FiO2 % Mode BiPAP Specimen Drawn By Receiving Worker ID Chloride (98-107) mmol/L Carbon Dioxide (22-29) mmol/L Anion Gap (5-19) BUN (8-23) mg/dL Creatinine (0.7-1.2) mg/dL GFR Calculation (90-130) mL/min Lactate (0.5-2.2) mmol/L Calcium (8.8-10.2) mg/Dl Magnesium 1.7 (1.7-2.3) mg/dL Total Bilirubin (0.15-1.2) mg/dL AST (0-40) U/L ALT (0-41) U/L Alkaline Phosphata se (40-130) IU/L Ammonia (16-60) umol/L Troponin T Baselin e 270 H* (0-15) ng/mL Troponin T 120 Min [place] (0-15) ng/mL Delta Troponin T (0-10) ABS# NT-Pro-B Natriuret Pep (0-125) pg/mL Total Protein (6.6-8.7) g/dL Albumin (3.5-5.2) g/dL Globulin (1.3-4.6) g/dL Salicylates (3-10) mg/dL Acetaminophen (10-30) ug/mL Blood Type O Positive Antibody Screen Negative Crossmatch See Detail 10/05/19 Range/Units 15:43 WBC (4.0-10.0) 10^3/ uL RBC (4.1-5.3) 10^6/u L Hgb (11.7-16.6) g/dL Hct (42.0-52.0) % MCV (80-94) fL MCH (28.0-34.0) pg MCHC (30.0-36.0) g/dL RDW (12.1-15.1) % Plt Count (130-400) 10^3/c mm MPV (7.4-10.4) fL Neut % (Auto) % Lymph % (Auto) % Walton % (Auto) % Eos % (Auto) % Baso % (Auto) % Neut # (Auto) (1.8-7.7) 10^3/u L Lymph # (Auto) (0.8-4.8) 10^3/u L Walton # (Auto) (0.2-0.9) 10^3/u L Eos # (Auto) (0.0-0.8) 10^3/u L Baso # (Auto) (0.0-0.1) 10^3/u L Nucleated RBC % (a uto) % Nucleated RBCs # /100WBC PT (10.5-13.3) SECO NDS INR (0.8-1.2) Specimen Type Sample Site ABG pH (7.35-7.45) ABG pCO2 (35-45) mmHg ABG pO2 (80.0-100.0) mmH g ABG HCO3 (22-26) mmol/L ABG O2 Saturation ABG Base Excess (-2.0-2.0) mmol/ L Edi Test A-a O2 Gradient (5-10) mmHg Hematocrit (42-52) % Hgb O2 Saturation (95-100) % Carboxyhemoglobin (0.4-20.1) %THgb Methemoglobin (0.4-1.5) % Total Hemoglobin (14-18) g/dL Sodium (131-143) mmol/L Potassium (3.5-5.0) mmol/L Glucose (70-115) mg/dL Ionized Calcium (1.1-1.4) mmol/L O2 Delivery Device FiO2 % Mode BiPAP Specimen Drawn By Receiving Worker ID Chloride (98-107) mmol/L Carbon Dioxide (22-29) mmol/L Anion Gap (5-19) BUN (8-23) mg/dL Creatinine (0.7-1.2) mg/dL GFR Calculation (90-130) mL/min Lactate (0.5-2.2) mmol/L Calcium (8.8-10.2) mg/Dl Magnesium (1.7-2.3) mg/dL Total Bilirubin (0.15-1.2) mg/dL AST (0-40) U/L ALT (0-41) U/L Alkaline Phosphata se (40-130) IU/L Ammonia (16-60) umol/L Troponin T Baselin e (0-15) ng/mL Troponin T 120 Min [place] 245.70 H (0-15) ng/mL Delta Troponin T -24.30 L (0-10) ABS# NT-Pro-B Natriuret Pep (0-125) pg/mL Total Protein (6.6-8.7) g/dL Albumin (3.5-5.2) g/dL Globulin (1.3-4.6) g/dL Salicylates (3-10) mg/dL Acetaminophen (10-30) ug/mL Blood Type Antibody Screen Crossmatch Imaging Data^: CT Head: Radiologist's impression: [address] [place] [address] CT Scan Report Signed Patient: Triston Newton V Unit #: [id number] : 1955 Age/Sex: 64 / M ADM Date: 10/05/19 Loc: ER Room/Bed: Attending Dr: Ordering Provider/Ordering MD: Priyanka Mcdaniel Date of Service: 10/05/19 Procedure(s): CT head wo con* [id number] Accession Number(s): [id number] Report Number: [id number] WS: [id number] CT HEAD TECHNIQUE: Noncontrast CT of the head obtained from the skullbase to the vertex. CLINICAL INFORMATION: AMS COMPARISON: DLP: 824.[address] scans at [facility] use at least one of these dose optimization techniques: automated exposure control; mA and/or kV adjustment per patient size (includes targeted exams where dose is matched to clinical indication); or iterative reconstruction. FINDINGS: No evidence of intracranial hemorrhage or mass effect. Ventricular system and basal cisterns are patent. Mild small vessel changes with mild parenchymal volume loss. No extra-axial fluid collections. No evidence of mass or mass effect. Normal valiente-white differentiation. Paranasal sinuses and mastoid air cells are well aerated. Small retention cyst right maxillary sinus. .Normal visualized soft tissues. Attempted LEIGH Miller at 10/05/2019 1:[address]/CT head wo con* [id number] IMPRESSION: 1. No evidence of intracranial hemorrhage or mass effect. 2. Mild small vessel changes. Mild parenchymal volume loss. 3. No acute intracranial findings. Dictated By: Trevor May MD Signed By: Trevor May MD Signed Date/Time: 10/05/19 1334 DD/ 1330 CXR: Radiologist's impression: [facility] [address] [place] [address] XRay Report Signed Patient: Triston Newton V Unit #: [id number] : 1955 Age/Sex: 64 / M ADM Date: 10/05/19 Loc: ER Room/Bed: Attending Dr: Ordering Provider/Ordering MD: Priyanka Mcdaniel Date of Service: 10/05/19 Procedure(s): XR chest 1V portable [id number] Accession Number(s): [id number] Report Number: [id number] PROCEDURE INFORMATION: Exam: XR Chest, 1 View Exam date and time: 10/05/2019 1:28 PM Age: 64 years old Clinical indication: Cough; Patient HX: PT nonresponsive; Additional info: Cough/congestion TECHNIQUE: Imaging protocol: XR of the chest Views: 1 view. COMPARISON: CR XR chest 1V portable [id number] 10/03/2019 12:46 PM FINDINGS: Lungs: Mild bilateral hilar vascular congestion is seen appearing increased since prior examination. There is low lung volumes seen. No consolidation. Pleural space: Unremarkable. No pleural effusion. No pneumothorax. Heart/Mediastinum: Unremarkable. No cardiomegaly. Bones/joints: Unremarkable. XR/XR chest 1V portable [id number] IMPRESSION: Bilateral hilar vascular congestion Low lung volumes Otherwise No acute findings. Dictated By: Juve Turcios Signed By: Juve Turcios Signed Date/Time: 10/05/191416 DD/ 15 Discharge Plan Discharge Patient Disposition: Admitted As Inpatient Admit Provider: Dago Wang Clinical Impression: Encephalopathy acute, ESRD (end stage renal disease) on dialysis, Liver failure, GI (gastrointestinal bleed) Condition: Stable Referrals: Jared Carter [Primary Care Provider] - Discharge Date/Time: 10/05/19 21:13 Sign Out Sign Out Data: Patient Sign Out occurred on 10/05/19 at 17:47. Patient's care was discussed, and care was transferred from to Malka Tucker. Coding Level of Care Code ED Porter Luggage for Chg Fwd Documented by User: Malka Tucker 10/05/19 18:40 HPI - Altered Mental Status General: Chief Complaint: Altered Mental Status Stated Complaint: AMS Time Seen by Provider: 10/05/19 12:34 PFSH ED PFSH: Statuses (acute, chronic, etc) shown below reflect problem list status as previously entered and may not be historically accurate Medical History (Updated 10/05/19 @ 19:21 by Dago Wang MD) Adjustment disorder with anxiety (Acute) Cardiomyopathy (Acute) CHF (congestive heart failure) (Acute) Diabetes (Acute) Diabetic retinopathy (Acute) Esophageal varices (Acute) ESRD (end stage renal disease) on dialysis (Acute) GERD (gastroesophageal reflux disease) (Acute) Hyperlipidemia (Acute) Hypertension (Acute) Liver cirrhosis (Acute) Liver failure (Acute) Stable Myocardial infarction (Acute) Normocytic anemia (Acute) Thrombocytopenia (Acute) Surgical History H/O circumcision (Acute) H/O colonoscopy (Acute) 08/2019: Follow-up colonoscopy 5 years H/O esophagogastroduodenoscopy (Acute) 2018: Gastric erosions and esophageal varices H/O eye surgery (Acute) right eye H/O hernia repair (Acute) x 4 H/O oral surgery (Acute) History of cataract surgery (Acute) bilateral History of knee replacement (Acute) right Hx of tonsillectomy (Acute) Family History Mother Cancer intestinal Denies family history of Anesthesia complication Bleeding disorder Social History Smoking and tobacco status: unknown if ever smoked Alcohol intake: never Household members: family Current occupational status: disabled Course Vital Signs: Vital signs: Vital Signs Temperature 98.4 F 10/05/19 20:20 Pulse Rate 82 10/05/19 20:42 Respiratory Rate 18 10/06/19 01:34 Blood Pressure 116/70 10/05/19 20:42 Pulse Oximetry 95 10/06/19 04:04 MDM - Altered Mental Status MDM Narrative: Medical decision making narrative: 1839 -the patient has change his mind and no longer wants to be transferred. He only wants to be kept here with comfort measures only. He is tired of going through this. I reviewed this with Dr. Gonzalez who is agreeable to admission. The patient be admitted and comfort care. Lab Data: Attestation: I reviewed the patient's lab results. Labs: Lab Results 10/05/19 10/05/19 10/05/19 Range/Units 13:20 13:33 13:33 WBC 4.2 (4.0-10.0) 10^3/ uL RBC 2.18 L (4.1-5.3) 10^6/u L Hgb 7.2 L (11.7-16.6) g/dL Hct 22.2 L (42.0-52.0) % MCV 101.8 H (80-94) fL MCH 33.0 (28.0-34.0) pg MCHC 32.4 (30.0-36.0) g/dL RDW 14.7 (12.1-15.1) % Plt Count 109 L (130-400) 10^3/c mm MPV 9.3 (7.4-10.4) fL Neut % (Auto) 65.1 % Lymph % (Auto) 16.3 % Walton % (Auto) 16.5 % Eos % (Auto) 1.2 % Baso % (Auto) 0.7 % Neut # (Auto) 2.8 (1.8-7.7) 10^3/u L Lymph # (Auto) 0.7 L (0.8-4.8) 10^3/u L Walton # (Auto) 0.7 (0.2-0.9) 10^3/u L Eos # (Auto) 0.1 (0.0-0.8) 10^3/u L Baso # (Auto) 0.0 (0.0-0.1) 10^3/u L Nucleated RBC % (a uto) 0 % Nucleated RBCs # 0.0 /100WBC PT (10.5-13.3) SECO NDS INR (0.8-1.2) Specimen Type Arterial Sample Site Radial, right ABG pH 7.56 H (7.35-7.45) ABG pCO2 41.8 (35-45) mmHg ABG pO2 75.4 L (80.0-100.0) mmH g ABG HCO3 37.1 H (22-26) mmol/L ABG O2 Saturation 96.7 ABG Base Excess 13.5 H (-2.0-2.0) mmol/ L Edi Test N/a A-a O2 Gradient 22.1 H (5-10) mmHg Hematocrit 30.7 L (42-52) % Hgb O2 Saturation 94.2 L (95-100) % Carboxyhemoglobin 1.8 (0.4-20.1) %THgb Methemoglobin 0.7 (0.4-1.5) % Total Hemoglobin 10.0 L (14-18) g/dL Sodium 136.0 132 L (131-143) mmol/L Potassium 3.4 L 3.3 L (3.5-5.0) mmol/L Glucose 104.0 113 H (70-115) mg/dL Ionized Calcium 1.1 (1.1-1.4) mmol/L O2 Delivery Device R/a FiO2 21.0 % Mode BiPAP Not Reportable Specimen Drawn By Not Reportable Receiving Worker ID [email or web address] Chloride 92 L (98-107) mmol/L Carbon Dioxide 31 H (22-29) mmol/L Anion Gap 12.3 (5-19) BUN 10 (8-23) mg/dL Creatinine 1.8 H (0.7-1.2) mg/dL GFR Calculation 38.3 L (90-130) mL/min Lactate (0.5-2.2) mmol/L Calcium 8.3 L (8.8-10.2) mg/Dl Magnesium (1.7-2.3) mg/dL Total Bilirubin 1.1 (0.15-1.2) mg/dL AST 42 H (0-40) U/L ALT 20 (0-41) U/L Alkaline Phosphata se 297 H (40-130) IU/L Ammonia (16-60) umol/L Troponin T Baselin e (0-15) ng/mL Troponin T 120 Min [place] (0-15) ng/mL Delta Troponin T (0-10) ABS# NT-Pro-B Natriuret Pep 5850 H (0-125) pg/mL Total Protein 7.6 (6.6-8.7) g/dL Albumin 2.5 L (3.5-5.2) g/dL Globulin 5.1 H (1.3-4.6) g/dL Salicylates < 0.3 L (3-10) mg/dL Acetaminophen < 5.0 L (10-30) ug/mL Blood Type Antibody Screen Crossmatch 10/05/19 10/05/19 10/05/19 Range/Units 13:33 13:33 13:33 WBC (4.0-10.0) 10^3/ uL RBC (4.1-5.3) 10^6/u L Hgb (11.7-16.6) g/dL Hct (42.0-52.0) % MCV (80-94) fL MCH (28.0-34.0) pg MCHC (30.0-36.0) g/dL RDW (12.1-15.1) % Plt Count (130-400) 10^3/c mm MPV (7.4-10.4) fL Neut % (Auto) % Lymph % (Auto) % Walton % (Auto) % Eos % (Auto) % Baso % (Auto) % Neut # (Auto) (1.8-7.7) 10^3/u L Lymph # (Auto) (0.8-4.8) 10^3/u L Walton # (Auto) (0.2-0.9) 10^3/u L Eos # (Auto) (0.0-0.8) 10^3/u L Baso # (Auto) (0.0-0.1) 10^3/u L Nucleated RBC % (a uto) % Nucleated RBCs # /100WBC PT 16.30 H (10.5-13.3) SECO NDS INR 1.27 H (0.8-1.2) Specimen Type Sample Site ABG pH (7.35-7.45) ABG pCO2 (35-45) mmHg ABG pO2 (80.0-100.0) mmH g ABG HCO3 (22-26) mmol/L ABG O2 Saturation ABG Base Excess (-2.0-2.0) mmol/ L Edi Test A-a O2 Gradient (5-10) mmHg Hematocrit (42-52) % Hgb O2 Saturation (95-100) % Carboxyhemoglobin (0.4-20.1) %THgb Methemoglobin (0.4-1.5) % Total Hemoglobin (14-18) g/dL Sodium (131-143) mmol/L Potassium (3.5-5.0) mmol/L Glucose (70-115) mg/dL Ionized Calcium (1.1-1.4) mmol/L O2 Delivery Device FiO2 % Mode BiPAP Specimen Drawn By Receiving Worker ID Chloride (98-107) mmol/L Carbon Dioxide (22-29) mmol/L Anion Gap (5-19) BUN (8-23) mg/dL Creatinine (0.7-1.2) mg/dL GFR Calculation (90-130) mL/min Lactate 2.3 H (0.5-2.2) mmol/L Calcium (8.8-10.2) mg/Dl Magnesium (1.7-2.3) mg/dL Total Bilirubin (0.15-1.2) mg/dL AST (0-40) U/L ALT (0-41) U/L Alkaline Phosphata se (40-130) IU/L Ammonia 101 H (16-60) umol/L Troponin T Baselin e (0-15) ng/mL Troponin T 120 Min [place] (0-15) ng/mL Delta Troponin T (0-10) ABS# NT-Pro-B Natriuret Pep (0-125) pg/mL Total Protein (6.6-8.7) g/dL Albumin (3.5-5.2) g/dL Globulin (1.3-4.6) g/dL Salicylates (3-10) mg/dL Acetaminophen (10-30) ug/mL Blood Type Antibody Screen Crossmatch 10/05/19 10/05/19 10/05/19 Range/Units 13:33 13:33 14:19 WBC (4.0-10.0) 10^3/ uL RBC (4.1-5.3) 10^6/u L Hgb (11.7-16.6) g/dL Hct (42.0-52.0) % MCV (80-94) fL MCH (28.0-34.0) pg MCHC (30.0-36.0) g/dL RDW (12.1-15.1) % Plt Count (130-400) 10^3/c mm MPV (7.4-10.4) fL Neut % (Auto) % Lymph % (Auto) % [place] % (Auto) % Eos % (Auto) % Baso % (Auto) % Neut # (Auto) (1.8-7.7) 10^3/u L Lymph # (Auto) (0.8-4.8) 10^3/u L Walton # (Auto) (0.2-0.9) 10^3/u L Eos # (Auto) (0.0-0.8) 10^3/u L Baso # (Auto) (0.0-0.1) 10^3/u L Nucleated RBC % (a uto) % Nucleated RBCs # /100WBC PT (10.5-13.3) SECO NDS INR (0.8-1.2) Specimen Type Sample Site ABG pH (7.35-7.45) ABG pCO2 (35-45) mmHg ABG pO2 (80.0-100.0) mmH g ABG HCO3 (22-26) mmol/L ABG O2 Saturation ABG Base Excess (-2.0-2.0) mmol/ L Edi Test A-a O2 Gradient (5-10) mmHg Hematocrit (42-52) % Hgb O2 Saturation (95-100) % Carboxyhemoglobin (0.4-20.1) %THgb Methemoglobin (0.4-1.5) % Total Hemoglobin (14-18) g/dL Sodium (131-143) mmol/L Potassium (3.5-5.0) mmol/L Glucose (70-115) mg/dL Ionized Calcium (1.1-1.4) mmol/L O2 Delivery Device FiO2 % Mode BiPAP Specimen Drawn By Receiving Worker ID Chloride ([id number]) mmol/L Carbon Dioxide (22-29) mmol/L Anion Gap (5-19) BUN (8-23) mg/dL Creatinine (0.7-1.2) mg/dL GFR Calculation (90-130) mL/min Lactate (0.5-2.2) mmol/L Calcium (8.8-10.2) mg/Dl Magnesium 1.7 (1.7-2.3) mg/dL Total Bilirubin (0.15-1.2) mg/dL AST (0-40) U/L ALT (0-41) U/L Alkaline Phosphata se (40-130) IU/L Ammonia (16-60) umol/L Troponin T Baselin e 270 H* (0-15) ng/mL Troponin T 120 Min [place] (0-15) ng/mL Delta Troponin T (0-10) ABS# NT-Pro-B Natriuret Pep (0-125) pg/mL Total Protein (6.6-8.7) g/dL Albumin (3.5-5.2) g/dL Globulin (1.3-4.6) g/dL Salicylates (3-10) mg/dL Acetaminophen (10-30) ug/mL Blood Type O Positive Antibody Screen Negative Crossmatch See Detail 10/05/19 Range/Units 15:43 WBC (4.0-10.0) 10^3/ uL RBC (4.1-5.3) 10^6/u L Hgb (11.7-16.6) g/dL Hct (42.0-52.0) % MCV (80-94) fL MCH (28.0-34.0) pg MCHC (30.0-36.0) g/dL RDW (12.1-15.1) % Plt Count (130-400) 10^3/c mm MPV (7.4-10.4) fL Neut % (Auto) % Lymph % (Auto) % Walton % (Auto) % Eos % (Auto) % Baso % (Auto) % Neut # (Auto) (1.8-7.7) 10^3/u L Lymph # (Auto) (0.8-4.8) 10^3/u L Walton # (Auto) (0.2-0.9) 10^3/u L Eos # (Auto) (0.0-0.8) 10^3/u L Baso # (Auto) (0.0-0.1) 10^3/u L Nucleated RBC % (a uto) % Nucleated RBCs # /100WBC PT (10.5-13.3) SECO NDS INR (0.8-1.2) Specimen Type Sample Site ABG pH (7.35-7.45) ABG pCO2 (35-45) mmHg ABG pO2 (80.0-100.0) mmH g ABG HCO3 (22-26) mmol/L ABG O2 Saturation ABG Base Excess (-2.0-2.0) mmol/ L Edi Test A-a O2 Gradient (5-10) mmHg Hematocrit (42-52) % Hgb O2 Saturation (95-100) % Carboxyhemoglobin (0.4-20.1) %THgb Methemoglobin (0.4-1.5) % Total Hemoglobin (14-18) g/dL Sodium (131-143) mmol/L Potassium (3.5-5.0) mmol/L Glucose (70-115) mg/dL Ionized Calcium (1.1-1.4) mmol/L O2 Delivery Device FiO2 % Mode BiPAP Specimen Drawn By Receiving Worker ID Chloride (98-107) mmol/L Carbon Dioxide (22-29) mmol/L Anion Gap (5-19) BUN (8-23) mg/dL Creatinine (0.7-1.2) mg/dL GFR Calculation (90-130) mL/min Lactate (0.5-2.2) mmol/L Calcium (8.8-10.2) mg/Dl Magnesium (1.7-2.3) mg/dL Total Bilirubin (0.15-1.2) mg/dL AST (0-40) U/L ALT (0-41) U/L Alkaline Phosphata se (40-130) IU/L Ammonia (16-60) umol/L Troponin T Baselin e (0-15) ng/mL Troponin T 120 Min [place] 245.70 H (0-15) ng/mL Delta Troponin T -24.30 L (0-10) ABS# NT-Pro-B Natriuret Pep (0-125) pg/mL Total Protein (6.6-8.7) g/dL Albumin (3.5-5.2) g/dL Globulin (1.3-4.6) g/dL Salicylates (3-10) mg/dL Acetaminophen (10-30) ug/mL Blood Type Antibody Screen Crossmatch Discharge Plan Discharge Patient Disposition: Admitted As Inpatient Admit Provider: Dago Wang Clinical Impression: Encephalopathy acute, ESRD (end stage renal disease) on dialysis, Liver failure, GI (gastrointestinal bleed) Condition: Stable Referrals: Jared Carter [Primary Care Provider] - Discharge Date/Time: 10/05/19 21:13 Sign Out Sign Out Data: Patient Sign Out occurred on 10/05/19 at 17:47. Patient's care was discussed, and care was transferred from to [facility]. Coding Level of Care Code ED Porter Luggage for Karen Dorantes
--- NOTE | 2019-10-05 12:55 | CT_ITS ---
WS: [id number] CT HEAD TECHNIQUE: Noncontrast CT of the head obtained from the skullbase to the vertex. CLINICAL INFORMATION: AMS COMPARISON: 1 ,020 DLP: 824.[address] scans at [facility] use at least one of these dose optimization techniques: automat ed exposure control; mA and/or kV adjustment per patient size (includes targeted exams where dose is matched to clinical indication); or iterative reconstruction. FINDINGS: No evidence of intracranial hemorrhage or mass effect. Ventricular system and basal cisterns are sidhu nt. Mild small vessel changes with mild parenchymal volume loss. No extra-axial fluid collections. No evidence of mass or mass effect. Normal valiente-white differentiation. Paranasal sinuses and mastoid air cells are well aerated. Small retention cyst right maxillary sinus. .Normal visualized soft tissues. Attempted LEIGH Miller at 10/05/2019 1:[address]/CT head wo con* [id number] IMPRESSION: 1. No evidence of intracranial hemorrhage or mass effect. 2. Mild small vessel changes. Mild parenchymal volume loss. 3. No acute intracranial findings.
--- NOTE | 2019-10-05 12:56 | XRR_ITS ---
PROCEDURE INFORMATION: Exam: XR Chest, 1 View Exam date and time: 10/05/2019 1:28 PM Age: 64 years old Clinical indication: Cough; Patient HX: PT nonresponsive; Additional info: Cough/congestion TECHNIQUE: Imaging protocol: XR of the chest Views: 1 view. COMPARISON: CR XR chest 1V portable [id number] 10/03/2019 12:46 PM FINDINGS: Lungs: Mild bilateral hilar vascular congestion is seen appearing increased since prior examination. There is low lung volumes seen. No consolidation. Pleural space: Unremarkable. No pleural effusion. No pneumothorax. Heart/Mediastinum: Unremarkable. No cardiomegaly. Bones/joints: Unremarkable. XR/XR chest 1V portable [id number] IMPRESSION: Bilateral hilar vascular congestion Low lung volumes Otherwise No acute findings.
--- NOTE | 2019-10-05 13:26 | PC.NURSE ---
PT NOTED PREEXISTING BLINDNESS TO RIGHT EYE. UNABLE TO ASSESS RIGHT PUPIL. FAMILY STATES PT ALSO PARTIALLY BLIND IN LEFT EYE, ALSO PREEXISTING CONDITION.
[2019-10-05 13:42] LABS: Basophils % 0.7 %; Eosinophils # 0.1 10^3/uL (0.0-0.8); Eosinophils % 1.2 %; Hematocrit 22.2 % (42.0-52.0); Hemoglobin 7.2 g/dL (11.7-16.6); Lymphocytes # 0.7 10^3/uL (0.8-4.8); Lymphocytes % 16.3 %; Mean Corpuscular HGB Conc 32.4 g/dL (30.0-36.0); Mean Corpuscular Volume 101.8 fL (80-94); Mean Platelet Volume 9.3 fL (7.4-10.4); Monocytes # 0.7 10^3/uL (0.2-0.9); Monocytes % 16.5 %; Neutrophils # 2.8 10^3/uL (1.8-7.7); Neutrophils % 65.1 %; Nucleated Red Blood Cells % 0 %; Platelet Count 109 10^3/cmm (130-400); Red Blood Count 2.18 10^6/uL (4.1-5.3); Red Cell Distribution Width 14.7 % (12.1-15.1); White Blood Count 4.2 10^3/uL (4.0-10.0)
[2019-10-05 13:52] LABS: INR 1.27 (0.8-1.2)
[2019-10-05 14:14] LABS: Alanine Aminotransferase 20 U/L (0-41); Albumin Level 2.5 g/dL (3.5-5.2); Alkaline Phosphatase 297 IU/L (40-130); Anion Gap 12.3 (5-19); Aspartate Amino Transferase 42 U/L (0-40); Blood Urea Nitrogen 10 mg/dL (8-23); Calcium 8.3 mg/Dl (8.8-10.2); Carbon Dioxide 31 mmol/L (22-29); Chloride 92 mmol/L (98-107); Globulin 5.1 g/dL (1.3-4.6); Glomerular Filtration Rate 38.3 mL/min (90-130); Glucose 113 mg/dL (74-106); NT Pro B Type Natriuretic Pept 5850 pg/mL (0-125); Potassium 3.3 mmol/L (3.5-5.1); Sodium 132 mmol/L (136-145); Total Bilirubin 1.1 mg/dL (0.15-1.2); Total Protein 7.6 g/dL (6.6-8.7)
[2019-10-05 14:21] LABS: ABG PCO2 41.8 mmHg (35-45); Alveolar-Arterial Oxygen Gradi 22.1 mmHg (5-10); Arterial Blood Gas Hematocrit 30.7 % (42-52); Base Excess ABG 13.5 mmol/L (-2.0-2.0); Blood Gas Sample Site Radial, right; Blood Gas Sample Type Arterial; Carboxyhemoglobin 1.8 %THgb (0.4-20.1); HCO3 ABG 37.1 mmol/L (22-26); HGB O2 Sat 94.2 % (95-100); Ionized Calcium Level - ABG 1.1 mmol/L (1.1-1.4); Methemoglobin 0.7 % (0.4-1.5); Oxygen Saturation ABG 96.7; PO2 ABG 75.4 mmHg (80.0-100.0); Potassium Level - ABG 3.4 mmol/L (3.5-5.0)
[2019-10-05 14:23] LABS: Oxygen Device R/A
[2019-10-05 14:29] LABS: ABG PH Result 7.56 (7.35-7.45)
[2019-10-05 14:44] LABS: Acetaminophen < 5.0 ug/mL (10-30); Salicylate < 0.3 mg/dL (3-10)
[2019-10-05 14:50] LABS: Troponin(5th) Baseline 270 ng/mL (0-15)
--- NOTE | 2019-10-05 14:56 | ECG_ITS ---
Measurements Intervals [place] Rate: 89 P: 37 HI: 172 QRS: 103 QRSD: 75 T: 84 QT: 359 QTc: 438 SINUS RHYTHM RIGHT AXIS DEVIATION [QRS AXIS > 100] LOW QRS VOLTAGE IN PRECORDIAL LEADS [QRS DEFLECTION < 1.0 mV IN CHEST LEADS] SEPTAL MYOCARDIAL INFARCTION , PROBABLY OLD [40+ ms Q WAVE IN V1/V2] Compared to ECG 07/08/2019 23:58:45 Right-axis deviation now present Low QRS voltage now present Ventricular premature complex(es) no longer present Incomplete right bundle-branch block no longer present Myocardial infarct finding still present Electronically Signed On 10-05-2019 20:13:35 CERTIFIED HEALTH EDUCATION SPECIALIST by Mary Navarro M.D. [id number]
--- NOTE | 2019-10-05 14:57 | PC.NURSE ---
LEIGH Miller notified of critical troponin of 270.
[2019-10-05 15:10] LABS: Lactate (Lactic Acid level) 2.3 mmol/L (0.5-2.2)
[2019-10-05 15:11] LABS: Ammonia 101 umol/L (16-60)
[2019-10-05 15:19] LABS: Magnesium 1.7 mg/dL (1.7-2.3)
[2019-10-05] MEDS: lactulose oral liq 20 gm/30 mL UDC 30 GM PO (15:44)
[2019-10-05] MEDS: pantoprazole 40 mg SDV 80 MG IVP (17:21)
[2019-10-05] MEDS: nitroglycerin 1 gm/inch oint Pkt 1 INCH TOPICAL (17:24)
[2019-10-05] MEDS: FUROsemide 10 mg/mL SDV 4mL 40 MG IVP (18:00)
[2019-10-05] MEDS: octreotide 100 mcg/mL SDV 50 MCG IVP (18:01)
[2019-10-05] MEDS: morphine 4 mg/mL SDV 1 mL IVP (18:51)
--- NOTE | 2019-10-05 18:52 | PM.HP ---
Providers/Chief Complaint Primary Care Provider: Jared Carter Chief Complaint: AMS History of Present Illness Triston Newton is a 64 year old gentleman with history of chronic congestive heart failure, with cardiomyopathy, previously declined AICD, liver cirrhosis with ascites, esophageal varices, recurrent hepatic encephalopathy, ESRD on hemodialysis MWF, CAD, DM 2 with diabetic retinopathy, HLD, HTN, chronic anemia, thrombocytopenia, who returns to the hospital after being discharged yesterday after admission for treatment of hepatic encephalopathy due to recurrence of altered mental status during attempted dialysis today, as well as reports of black stools. On presentation noted to be anemic with hemoglobin of 7.2, down from 7.9 at last discharge. INR is 1.27, albumin 2.5. Ammonia noted 101. Troponin is chronically elevated, initial troponin 278 in ER. He was given p.o. lactulose, morphine for abdominal pain, Lasix with PRBC transfusion, Protonix 80 mg IV push and a dose of octreotide in ER. Due to concern for variceal bleeding arrangements were in process for transfer to [place] for additional assessment by gastroenterology. With the initial treatments patient had woken up, became significantly more alert. Lucid. On further discussion with ER physician Mr. Newton declined transfer, or any additional aggressive interventions, requesting to discontinue all medications in favor of hospice with comfort care. During my visit he is generally weak, but alert, conversant. His son is at bedside and corroborates his wishes. He describes his medical conditions including liver cirrhosis, with ascites, recurrent episode of encephalopathy, esophageal varices now with possible GI bleeding, for which she states does not want any further treatment. Again declines transfer, does not wish to pursue any additional evaluation here or treatment for bleeding, or his ascites. With regards to ESRD he wants to discontinue hemodialysis. He had previously declined AICD in the setting of his heart failure on review of prior documentation. Noted CODE STATUS from prior admission was allowed natural . He is oriented to being in the hospital. He knows today is Thursday. Remembers his hemodialysis on Thursday. Reports today hemodialysis may have been tried, however, does not remember much else from today. He knows who the president is. He is having difficulty with remembering the year, however, knows it is . He correctly names his eldest son sitting at the bedside, stating that in case he himself can no longer make decisions his son would be surrogate decision-maker. He prefers not to take any further medications including his lactulose so as not to prolong the inevitable. 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); Denies: change in vision or eye redness ENMT: Denies: throat pain, painful swallowing, oral sores/lesions or ear pain Card: Reports: edema and swelling of feet/ankles; Denies: chest pain or pre-syncope Resp: Denies: productive cough, change in phlegm color or coughing up blood GI: Reports: abdominal pain, nausea, bloating, black tarry stool and other (Abdominal distention); Denies: vomiting, vomiting blood, diarrhea or blood in stool : Denies: flank pain or blood in urine Musc: Denies: joint swelling or redness Skin/Breast: Denies: rash, sores or new lesion Neuro: Denies: headache, numbness in extremities, weakness in extremities, dizziness, confusion (Recurrent encephalopathy. Encephalopathic earlier today. Currently lucid.) or seizure-like activity Psych: Denies: anxiety Endo: Reports: tired all the time; Denies: excessive urination or excessive thirst Sina/Lymph: Denies: purpura All/Imm: Denies: hives, throat swelling or tongue swelling Medications/Allergies Allergies Allergy/AdvReac Type Severity Reaction Status Date / Time perflutren [From Definity] Allergy Unknown Unknown Verified 10/05/19 12:39 trazodone Allergy Unknown Unknown Verified 10/05/19 12:39 Gadolinium-Containing Allergy Unknown Verified 10/05/19 12:39 Contrast Medi PFSH Acute PFSH: Statuses (acute, chronic, etc) shown below reflect problem list status as previously entered and may not be historically accurate Medical History Adjustment disorder with anxiety (Acute) Cardiomyopathy (Acute) CHF (congestive heart failure) (Acute) Diabetes (Acute) Stable Diabetic retinopathy (Acute) Esophageal varices (Acute) ESRD (end stage renal disease) on dialysis (Acute) Receives dialysis. GERD (gastroesophageal reflux disease) (Acute) Hyperlipidemia (Acute) Hypertension (Acute) Liver failure (Acute) Stable Myocardial infarction (Acute) Normocytic anemia (Acute) Thrombocytopenia (Acute) Surgical History H/O circumcision (Acute) H/O colonoscopy (Acute) 08/2019: Follow-up colonoscopy 5 years H/O esophagogastroduodenoscopy (Acute) 2018: Gastric erosions and esophageal varices H/O eye surgery (Acute) right eye H/O hernia repair (Acute) x 4 H/O oral surgery (Acute) History of cataract surgery (Acute) bilateral History of knee replacement (Acute) right Hx of tonsillectomy (Acute) Family History Mother Cancer intestinal Denies family history of Anesthesia complication Bleeding disorder Social History Smoking and tobacco status: unknown if ever smoked Alcohol intake: never Household members: family Current occupational status: disabled Vitals/I&O/Wt Last Vital Signs Temp 98.0 F 10/05/19 16:31 Pulse 86 10/05/19 16:31 Resp 18 10/05/19 16:31 BP 113/55 10/05/19 16:31 Pulse Ox 97 10/05/19 16:31 10/05/19 10/05/19 10/05/19 06:59 14:59 22:59 Intake Total 0 / 0 Balance 0 / 0 Physical Exam Const: COMMON NORMALS: no apparent distress and alert; negative for healthy appearing EXAM LIMITATIONS: no altered mental status GENERAL APPEARANCE: cooperative; not anxious ORIENTATION/CONSCIOUSNESS: not obtunded and not lethargic HENMT: COMMON NORMALS: oropharynx normal Neck/C-Spine: COMMON NORMALS: no JVD Resp: COMMON NORMALS: normal respiratory effort and clear to auscultation bilaterally AUSCULTATION: clear to auscultation bilaterally Cardio: COMMON NORMALS: no JVD, regular rhythm, S1 normal heart sound, S2 normal heart sound and no murmurs RHYTHM: regular rhythm HEART SOUNDS: S1 normal and S2 normal GI: COMMON NORMALS: soft to palpation PALPATION: Yes soft, Yes ascites present and Yes other (Market abdominal distention.) Extremity: COMMON NORMALS: no joint enlargement GENERAL: Yes edema (3+) Neuro: COMMON NORMALS: moves all extremities Skin: COMMON NORMALS: no rashes or lesions noted GENERAL SKIN EXAM: no rashes or lesions noted Data : 10/05/19 13:33 10/05/19 13:33 A&P Assessment and plan (1) GI (gastrointestinal bleed): With history of esophageal varices. With reported dark stools prior to admission. Hemoglobin down to 7.2. With acute encephalopathy earlier today. He is concern for possible variceal bleeding in the setting of his multiple comorbidities, arrangements were being prepared by emergency department for transfer to [place] for additional assessment and management, however, after initial treatment with lactulose, previous transfusion with Lasix, octreotide, morphine for abdominal pain he became alert, requesting to cancel transfer, as well as any further aggressive interventions. His wishes are corroborated by his oldest son who is at his bedside, he is also later visited by additional family including his brother. He at this time wishes to discontinue any further interventions or assessments, and stop all his medications, wishing to transition to hospice with comfort care. On discussion where he would prefer to spend his remaining time he states he could not return home where he has previously been living with a friend/caregiver. In accordance with his wishes, we will not continue his medications apart from gabapentin to prevent symptoms of withdrawal, avoid any blood draws, start on symptomatic management with as needed morphine, Ativan, Zofran. Will place consult to social service liaison for arrangements of hospice. In accordance with his wishes his family will try to get his tour conductor to come visit him. Status: Acute Code(s): K92.2 - Gastrointestinal hemorrhage, unspecified (2) Liver cirrhosis: Status: Acute Code(s): K74.60 - Unspecified cirrhosis of liver (3) ESRD (end stage renal disease) on dialysis: Status: Acute Code(s): N18.6 - End stage renal disease; Z99.2 - Dependence on renal dialysis (4) Diabetes: Status: Acute Code(s): E11.9 - Type 2 diabetes mellitus without complications Attestations Medical Necessity Statement*: At this time he is being admitted for hospice/comfort care which is anticipated to cross over 2 midnights. Coding Level of Care Code Acute Monotype Keyboard Operator for Karen Fwd Diagnoses GI (gastrointestinal bleed) K92.2 Liver cirrhosis K74.60 ESRD (end stage renal disease) on dialysis N18.6; Z99.2 Diabetes E11.9
[2019-10-05] MEDS: ondansetron 2 mg/ML SDV 2 mL 4 MG IVP ×2 (18:53→22:02)
--- NOTE | 2019-10-05 18:56 | ECG_ITS ---
Measurements Intervals [place] Rate: 88 P: 43 KS: 192 QRS: 109 QRSD: 83 T: 89 QT: 376 QTc: 455 SINUS RHYTHM LOW QRS VOLTAGE IN PRECORDIAL LEADS [QRS DEFLECTION < 1.0 mV IN CHEST LEADS] SEPTAL MYOCARDIAL INFARCTION , PROBABLY OLD [40+ ms Q WAVE IN V1/V2] LATERAL MYOCARDIAL INFARCTION , PROBABLY OLD [40+ ms Q WAVE AND/OR ST/T AB ABNORMALITY IN I/aVL/V5/V6] Compared to ECG 10/05/2019 14:13:23 Right-axis deviation no longer present Myocardial infarct finding still present Electronically Signed On 10-06-2019 22:26:02 INSPECTION AND TESTING SUPERVISOR by Red Chandler M.D. [id number]
[2019-10-05] MEDS: morphine 4 mg/mL SDV 1 mL 2 MG IVP (21:58)
[2019-10-06] VITALS (9 sets, daily range): RESP 8–18; O2SAT 95
[2019-10-06] MEDS: morphine 4 mg/mL SDV 1 mL IVP ×4 (01:34→15:38)
--- NOTE | 2019-10-06 19:41 | PC.NURSE ---
Pt given Iv morphine per family request. Family at bs not wanting turned at this time.
--- NOTE | 2019-10-06 19:50 | PM.PN ---
Subjective Subjective: Interval history: He is obtunded. Loud upper airway rhonchi. Surrounded by family. Vitals/I&O/Wt Last Vital Signs Temp 98.4 F 10/05/19 20:20 Pulse 82 10/05/19 20:42 Resp 12 10/06/19 17:52 BP 116/70 10/05/19 20:42 Pulse Ox 95 10/06/19 04:04 10/06/19 10/06/19 10/06/19 06:59 14:59 22:59 Output Total 0 / 0 Balance 0 / 430 Physical Exam Const: GENERAL APPEARANCE: not anxious ORIENTATION/CONSCIOUSNESS: Yes obtunded HENMT: COMMON NORMALS: oropharynx normal Neck/C-Spine: COMMON NORMALS: no JVD Resp: COMMON NORMALS: normal respiratory effort AUSCULTATION: rhonchi Cardio: COMMON NORMALS: no JVD, regular rhythm, S1 normal heart sound, S2 normal heart sound and no murmurs RHYTHM: regular rhythm HEART SOUNDS: S1 normal and S2 normal GI: COMMON NORMALS: soft to palpation PALPATION: Yes soft, Yes ascites present and Yes other (Market abdominal distention.) Extremity: COMMON NORMALS: no joint enlargement GENERAL: Yes edema (3+) Skin: COMMON NORMALS: no rashes or lesions noted GENERAL SKIN EXAM: no rashes or lesions noted A&P Assessment and plan (1) GI (gastrointestinal bleed): He is obtunded. With audible rhonchi from upper airways. Multiple family members are with him. Not in distress. Continue comfort measures. Status: Acute Code(s): K92.2 - Gastrointestinal hemorrhage, unspecified (2) Liver cirrhosis: Status: Acute Code(s): K74.60 - Unspecified cirrhosis of liver (3) ESRD (end stage renal disease) on dialysis: Status: Acute Code(s): N18.6 - End stage renal disease; Z99.2 - Dependence on renal dialysis (4) Diabetes: Status: Acute Code(s): E11.9 - Type 2 diabetes mellitus without complications Attestations Medical Necessity Statement*: Continue admission for end-of-life comfort care. Coding Level of Care Code Acute Field Service Consultant for [facility] Diagnoses GI (gastrointestinal bleed) K92.2 Liver cirrhosis K74.60 ESRD (end stage renal disease) on dialysis N18.6; Z99.2 Diabetes E11.9
--- NOTE | 2019-10-06 23:10 | PC.NURSE ---
family at bs, requesting morphine for air hungar, not wanting pt turned at this time.
--- NOTE | 2019-10-07 01:08 | PC.NURSE ---
Given atropine SL at this time. Pt still unresponsive family at bs not wanting pt turned at this time.
[2019-10-07 02:57] VITALS: RESP 9
[2019-10-07] MEDS: morphine 4 mg/mL SDV 1 mL IVP (02:57)
--- NOTE | 2019-10-07 03:09 | PC.NURSE ---
pt resting in bed family at refused to have pt turned at this time. Given morphine for air hungar and attempted to suction.
[2019-10-07 04:53] VITALS: RESP 12
--- NOTE | 2019-10-07 07:19 | PC.NURSE ---
0714 No respirations noted. No heart sounds auscultated. Verified by two RNs. Family at bedside. Drill Bit Sharpener and Physician notified.
--- NOTE | 2019-10-07 08:56 | PC.NURSE ---
[place] [facility] [place]
--- NOTE | 2019-10-07 21:23 | PM.DDS ---
Discharge Providers DDS Date of Admission: 10/05/19 19:35 Date Summary Completed: 10/07/19 Attending Provider at Admission: Dago Wang Time of : 07:14 Attending Provider at Discharge: Dago Wang Primary Care Provider: Jared DAVID Diagnoses Hospital Diagnoses (1) GI (gastrointestinal bleed): (2) Liver cirrhosis: (3) ESRD (end stage renal disease) on dialysis: (4) Diabetes: Reason for Visit Reason for Visit: Reason For Visit: AMS Summary Date and Time of : Date of : 10/07/19 Time of : 07:14 Summary: Summary: Triston Newton, a pleasant 64 year old gentleman with extensive medical history which includes chronic congestive heart failure, with cardiomyopathy, previously declined AICD, liver cirrhosis with ascites, esophageal varices, recurrent hepatic encephalopathy, ESRD on hemodialysis MWF, CAD, DM 2 with diabetic retinopathy, HLD, HTN, chronic anemia, thrombocytopenia, who returned to the hospital after being discharged day earlier after admission for treatment of hepatic encephalopathy due to recurrence of altered mental status during attempted hemodialysis, as well as reports of black stools. On presentation he was noted to have worsening of anemia, hemoglobin 7.2, INR is 1.27, albumin 2.5. Ammonia 101. Troponin chronically elevated, initial troponin 278 in ER. He was given p.o. lactulose, morphine for abdominal pain, Lasix with PRBC transfusion, Protonix 80 mg IV push and a dose of octreotide. Due to concern for variceal bleeding arrangements were in process for transfer to [place] for additional assessment by gastroenterology. However, with the initial treatments patient had woken up, became alert. Lucid. On further discussion with ER physician Mr. Newton declined transfer, or any additional aggressive interventions, requesting to discontinue all medications in favor of hospice with comfort care. During my visit he was generally weak, but alert and conversant. His son was at bedside and corroborated his wishes. Mr. Newton described his medical conditions to me in detail including liver cirrhosis, with ascites, recurrent episodes of encephalopathy, esophageal varices now with possible GI bleeding, for which he stated did not want any further treatment. Again declined transfer, and did not wish to pursue any additional evaluation or treatment for bleeding, or his ascites while here. With regards to ESRD he requested to discontinue hemodialysis. He had previously declined AICD in the setting of his heart failure on review of older documentation. Noted CODE STATUS from prior admission was changed to allow natural . He was oriented x3 and had good insight into his unfortunately very poor overall condition and long-term prognosis. He was visited by more family while in ER. In accordance with his wishes he was admitted for placement to hospice with comfort care. All acute interventions were discontinued, with only comfort medications maintained as needed for pain or distress. He was surrounded by family, and peacefully at 07:14 this morning. Additional Data: Advance directives?: Yes Discharge Plan Discharge Patient Disposition: At Medical Facility Condition: Prescriptions: No Action fluticasone propionate 50 mcg/actuation spray,suspension 1 spray INTRANASAL BID RF: 0 cetirizine [Allergy Relief (cetirizine)] 10 mg tablet 10 mg PO DAILY RF: 0 lidocaine-prilocaine 2.5-2.5 % cream 1 applic TOPICAL ONCE RF: 0 clopidogrel [Plavix] 75 mg tablet 75 mg PO DAILY RF: 0 calcium acetate 667 mg capsule 1,334 mg PO TID RF: 0 allopurinol 100 mg tablet 100 mg PO ONCE RF: 0 gabapentin 100 mg capsule 100 mg PO BID RF: 0 Novolog Mix 70-30 U-100 Insuln 100 unit/mL (70-30) solution See Rx Instructions SUBCUT .COMPLEX RF: 0 lactulose 10 gram/15 mL solution 60 ml PO TID RF: 0 midodrine 10 mg Tablet See Rx Instructions .ROUTE .COMPLEX RF: 0 Nephrocaps 1 mg PO DAILY RF: 0 terbinafine HCl 1 % Cream 1 applic TOPICAL BID RF: 0 simvastatin 40 mg Tablet 20 mg PO DAILY RF: 0 ketorolac 0.5 % Drops 1 drp OPHTHALMIC (EYE) QID RF: 0 prednisolone acetate 1 % Drops,Suspension 1 drp OPHTHALMIC (EYE) BID RF: 0 pantoprazole 40 mg Tablet,Delayed Release (Dr/Ec) 40 mg PO DAILY RF: 0 Xifaxan 550 mg Tablet 550 mg PO BID Qty: 60 RF: 3 Referrals: Jared Carter [Primary Care Provider] - Discharge Date/Time: 10/07/19 08:56 DS Attestations Time Spent in /Discharge Care*: greater than 30 min Quality - AMI: AMI present?: No Quality - Stroke: CVA present?: No Symptom Onset Unknown: No Quality - VTE: VTE present?: No Deep Vein Thrombosis/Pulmonary Embolism Present on Admission: No Coding Level of Care Code Acute Paper Carrier for g Fwd Diagnoses GI (gastrointestinal bleed) K92.2 Liver cirrhosis K74.60 ESRD (end stage renal disease) on dialysis N18.6; Z99.2 Diabetes E11.9
== END 2019-10-07 08:56 | disposition expired | DRG 377 ==
LOC: ER 15:24 → MEDSURG 19:36
PROVIDERS: Physician Assistant; Admitting Provider Internal Medicine; Emergency Provider Emergency Medicine; Family Provider Internal Medicine; PCP Internal Medicine; Visit Provider Internal Medicine
DX: K92.2 Gastrointestinal hemorrhage, unspecified (principal); N18.6 End stage renal disease; G93.40 Encephalopathy, unspecified; I42.9 Cardiomyopathy, unspecified; I13.2 Hypertensive heart and chronic kidney disease with heart failure and with stage 5 chronic kidney disease, or end stage renal disease; Z99.2 Dependence on renal dialysis; I25.10 Atherosclerotic heart disease of native coronary artery without angina pectoris; I25.2 Old myocardial infarction; E11.22 Type 2 diabetes mellitus with diabetic chronic kidney disease; E11.319 Type 2 diabetes mellitus with unspecified diabetic retinopathy without macular edema; E78.5 Hyperlipidemia, unspecified; I50.9 Heart failure, unspecified; K74.60 Unspecified cirrhosis of liver; Z88.8 Allergy status to other drugs, medicaments and biological substances; Z79.02 Long term (current) use of antithrombotics/antiplatelets; Z79.4 Long term (current) use of insulin; Z79.52 Long term (current) use of systemic steroids; Z96.651 Presence of right artificial knee joint; K21.9 Gastro-esophageal reflux disease without esophagitis
CPT/HCPCS: 12345; 36415; 36430; 36600; 70450; 71045; 80051; 80053; 80307; 82140; 82810; 83605; 83735; 83880; 83986; 84484; 85025; 85610; 86850; 86900; 93005; 96374; 96375; 99281; C9113; J1940; J2270; J2354; J2405; P9016